=== PATIENT | female | born 1935 | race Caucasian/White ===

== ENCOUNTER 2021-10-29 12:32 | Inpatient (IN) ==
--- NOTE | 2021-10-29 12:49 | Emergency Department Note ---
Impression & Plan TIA (transient ischemic attack), Hypertension, Acute hyponatremia ED Provider Note NAME: SHRUTHI MORRISSEY AGE: 85 SEX: F : 1935 ARRIVES VIA: Walk-In INFORMANT: Patient ED PROVIDER(S): Fran Mendoza DO CHIEF COMPLAINT: trouble walking HPI: Patient is a 85-year-old female who presents to the ER for trouble walking. She notes she was sitting around 1150 and noticed pain on the left side of her head. Following this she had some coolness over the left side of her face. She has been having trouble walking. She denies any weakness or numbness in her arms or legs. No change in vision. No chest pain or shortness of breath. No nausea, vomiting, or diarrhea. No other exacerbating or remitting factors. ROS: See above HPI for pertinent positives & negatives. A total of 10 systems reviewed and were otherwise negative. PAST MEDICAL HISTORY:See Below PAST SURGICAL HISTORY:See Below FAMILY HISTORY:See Below SOCIAL HISTORY:See Below HOME MEDICATIONS:See Below ALLERGIES:See Below VITALS:See Below PHYSICAL EXAMINATION: GENERAL: Sitting up in bed, alert, well appearing, well nourished, no distress, non-toxic EYE EXAM: normal conjunctiva. PERRL and EOM's intact. OROPHARYNX:mucous membranes are moist LUNGS: Clear to auscultation. Normal chest wall mechanics HEART: no murmurs, S1 normal and S2 normal ABDOMEN: abdomen soft, non-tender, normo-active bowel sounds, no masses, no rebound or guarding. BACK: Back is symmetrical on inspection and there is no deformity, no midline tenderness, no CVA tenderness. SKIN: no rashes and no bruising UPPER EXTREMITIES: upper extremities are grossly normal. LOWER EXTREMITIES: No pitting edema. NEURO EXAM: Normal sensorium, cranial nerves II-XII intact, normal speech, no weakness of arms, no weakness of legs. No drift. Finger to nose intact. Gross sensation intact. Ambulates with little to no assistance. MEDICAL DECISION MAKING: Patient is an 85-year-old female who presents the ER for the above-stated complaint. IV was established blood work was obtained. Labs show no significant leukocytosis or anemia. INR was unremarkable. BMP with mild hyponatremia at 128. LFTs bilirubin was unremarkable. Blood was negative. COVID was negative. CT of the head shows lacunar infarcts in combination with approximately 50% stenosis of the left carotid, 70% stenosis of the right internal carotid, marked stenosis of the right carotid artery at 90% as well as complete stenosis of the left vertebral artery with questionable dissection. Patient is completely neurologically intact. She is not a candidate for tPA at this time based on her stroke score no neurodeficit. Her blood pressure was significantly elevated and systolics of 280. She was given 2 doses of labetalol and trended down 230. Triage Nursing notes reviewed. Limited review of prior medical records performed Vital Signs: reviewed and remarkable for hypertensive Differential diagnosis: Differential Diagnosis includes but is not limited to ischemic Stroke, hemorrhagic stroke, bells palsy, mass, neoplasm, migraine headache, seizure, subarachnoid hemorrhage, TIA, and transient global amnesia. ER treatment provided: See below Diagnostics interpreted by me: ECG: Sinus rhythm rate of 97 Normal axis No PVCs QTC 439 Cardiac Monitoring: An order was placed for continuous cardiac monitoring. The monitor shows a rate of 92 with sinus rhythm. Laboratory studies: As stated above and show below. Imaging studies: CTs as described above [facility] Procedures: none Critical Care: I have personally spent 32 minutes of critical care time in the direct manag ement of this patient. This includes bedside care, interpretation of diagnostic studies, and testing, discussion with consultants, patient, and family members, and other required patient management activities. This 32 minutes is in excess of all separately billable procedures. Past Med/Surg History Medical History (Updated 10/29/21 @ 16:15 by Fran Mendoza DO) CVA (cerebral vascular accident) seen on 10/28/[address] Hypertension Surgical History (Updated 10/29/21 @ 16:09 by Ruth Duran PA-C) No significant past surgical history Family History (Updated 10/29/21 @ 16:08 by Ruth Duran PA-C) Other Family history non-contributory Social History Preferred Language: Russian Feels Safe at Home: Yes Results & Data (ED) Vital Signs Vital Signs - 24 hr 10/29/21 12:33 10/29/21 13:03 10/29/21 13:43 Temperature 36.8 C Temperature Source Temporal Artery Scan Pulse Rate 98 H 85 Pulse Rate [Apical] 93 H Pulse Rate from SpO2 Sensor 84 Respiratory Rate 16 15 20 Blood Pressure Blood Pressure [Left Arm] 280/116 H Blood Pressure Mean Blood Pressure Mean [Left Arm] 170 Pulse Oximetry 98 99 98 Oxygen Delivery Method Room Air Room Air Sepsis Recent Fever Within 48 Hours No Sepsis New/Unexplained Change in Mental Status No Sepsis Action Taken by Nursing No Action Required 10/29/21 13:45 10/29/21 14:00 10/29/21 14:30 Temperature Temperature Source Pulse Rate 85 75 74 Pulse Rate [Apical] Pulse Rate from SpO2 Sensor 84 75 76 Respiratory Rate 22 23 17 Blood Pressure 233/106 H 239/72 H 260/86 H Blood Pressure [Left Arm] Blood Pressure Mean 148 127 144 Blood Pressure Mean [Left Arm] Pulse Oximetry 98 97 98 Oxygen Delivery Method Room Air Room Air Room Air Sepsis Recent Fever Within 48 Hours Sepsis New/Unexplained Change in Mental Status Sepsis Action Taken by Nursing 10/29/21 14:34 10/29/21 14:55 10/29/21 15:00 Temperature Temperature Source Pulse Rate 83 79 Pulse Rate [Apical] Pulse Rate from SpO2 Sensor 83 80 Respiratory Rate 15 15 Blood Pressure 219/165 H Blood Pressure [Left Arm] Blood Pressure Mean 183 Blood Pressure Mean [Left Arm] Pulse Oximetry 98 98 Oxygen Delivery Method Room Air Room Air Room Air Sepsis Recent Fever Within 48 Hours Sepsis New/Unexplained Change in Mental Status Sepsis Action Taken by Nursing 10/29/21 15:01 Temperature Temperature Source Pulse Rate 80 Pulse Rate [Apical] Pulse Rate from SpO2 Sensor 82 Respiratory Rate 15 Blood Pressure 239/82 H Blood Pressure [Left Arm] Blood Pressure Mean 134 Blood Pressure Mean [Left Arm] Pulse Oximetry 98 Oxygen Delivery Method Room Air Sepsis Recent Fever Within 48 Hours Sepsis New/Unexplained Change in Mental Status Sepsis Action Taken by Nursing Laboratory Data Result diagrams: 10/29/21 13:50 10/29/21 13:50 Lab Results 10/29/21 10/29/21 10/29/21 Range/Units 12:59 13:50 13:50 WBC 6.13 (4.8-10.8) K/ul RBC 3.99 (3.93-5.22) M/uL Hgb 11.7 L (12.0-16.0) g/dl Hct 34.4 (34.1-44.9) % MCV 86.2 (80.0-100.0) fL MCH 29.3 (25.0-34.0) pg MCHC 34.0 (32.0-36.0) g/dL RDW Std Deviation 40.2 (36.4-46.3) fL RDW Coeff of Kaila 12.8 (11.5-14.5) % Plt Count 249 (130-400) K/uL MPV 10.2 (9.4-12.3) fL Immature Gran % (Auto) 0.3 % Neut % (Auto) 60.8 % Lymph % (Auto) 23.7 % [place] % (Auto) 10.8 % Eos % (Auto) 3.4 % Baso % (Auto) 1.0 % Neut # (Auto) 3.73 (1.4-6.5) K/uL Lymph # (Auto) 1.45 (1.2-3.4) K/uL [place] # (Auto) 0.66 (0.24-0.82) K/uL Eos # (Auto) 0.21 (0-0.50) K/uL Baso # (Auto) 0.06 (0-0.2) K/uL Immature Gran # (Auto) 0.02 (0.00-0.02) K/uL PT 10.9 (9.0-12.0) Seconds INR 1.0 (0.9-1.1) APTT 28.8 (21.0-31.0) Seconds PTT Ratio 1.0 Sodium (136-145) mmol/L Potassium (3.5-5.1) mmol/L Chloride (98-107) mmol/L Carbon Dioxide (21-32) mmol/L Anion Gap (3-11) BUN (6-23) mg/dl Creatinine (0.6-1.2) mg/dl Est Cr Clr Drug Dosing ml/min Est GFR ( Amer) ml/min Est GFR (Non-Af Amer) ml/min BUN/Creatinine Ratio (10-20) Glucose (70-99(Fasting)) mg/dl POC Glucose 105 H (70-99) mg/dl Calcium (8.5-10.1) mg/dl Magnesium (1.7-2.4) mg/dl Total Bilirubin (0.2-1.0) mg/dl AST (13-39) U/L ALT (7-52) U/L Alkaline Phosphatase (34-104) U/L Troponin I High Sens (0-14) pg/ml Total Protein (6.0-8.3) gm/dl Albumin (3.4-5.0) gm/dl Globulin (2.5-4.0) gm/dl Albumin/Globulin Ratio (0.9-2) SARS-CoV-2, RNA, NAAT (NEGATIVE) 10/29/21 10/29/21 Range/Units 13:50 15:05 WBC (4.8-10.8) K/ul RBC (3.93-5.22) M/uL Hgb (12.0-16.0) g/dl Hct (34.1-44.9) % MCV (80.0-100.0) fL MCH (25.0-34.0) pg MCHC (32.0-36.0) g/dL RDW Std Deviation (36.4-46.3) fL RDW Coeff of Kaila (11.5-14.5) % Plt Count (130-400) K/uL MPV (9.4-12.3) fL Immature Gran % (Auto) % Neut % (Auto) % Lymph % (Auto) % [place] % (Auto) % Eos % (Auto) % Baso % (Auto) % Neut # (Auto) (1.4-6.5) K/uL Lymph # (Auto) (1.2-3.4) K/uL [place] # (Auto) (0.24-0.82) K/uL Eos # (Auto) (0-0.50) K/uL Baso # (Auto) (0-0.2) K/uL Immature Gran # (Auto) (0.00-0.02) K/uL PT (9.0-12.0) Seconds INR (0.9-1.1) APTT (21.0-31.0) Seconds PTT Ratio Sodium 128 L (136-145) mmol/L Potassium 4.2 (3.5-5.1) mmol/L Chloride 99 (98-107) mmol/L Carbon Dioxide 24 (21-32) mmol/L Anion Gap 5 (3-11) BUN 22 (6-23) mg/dl Creatinine 1.17 (0.6-1.2) mg/dl Est Cr Clr Drug Dosing 30.9 ml/min Est GFR ( Amer) 48.5 ml/min Est GFR (Non-Af Amer) 41.9 ml/min BUN/Creatinine Ratio 18.8 (10-20) Glucose 100 H (70-99(Fasting)) mg/dl POC Glucose (70-99) mg/dl Calcium 8.0 L (8.5-10.1) mg/dl Magnesium 1.8 (1.7-2.4) mg/dl Total Bilirubin 0.4 (0.2-1.0) mg/dl AST 19 (13-39) U/L ALT 21 (7-52) U/L Alkaline Phosphatase 57 (34-104) U/L Troponin I High Sens 9.7 (0-14) pg/ml Total Protein 6.4 (6.0-8.3) gm/dl Albumin 3.7 (3.4-5.0) gm/dl Globulin 2.7 (2.5-4.0) gm/dl Albumin/Globulin Ratio 1.4 (0.9-2) SARS-CoV-2, RNA, NAAT NEGATIVE (NEGATIVE) Administered Medications Discontinued Medications Ioversol (Optiray 320 125ml) 119 ml IV ONCE ONE Stop: 10/29/21 13:42 Last Admin: 10/29/21 13:42 Dose: 119 ml Documented by: [id number] Labetalol HCl (Labetalol Hcl Iv 5 Mg/Ml 20ml) 10 mg IV NOW STA Stop: 10/29/21 13:12 Last Admin: 10/29/21 13:47 Dose: 10 mg Documented by: [id number] Cosigned by: [id number] Labetalol HCl (Labetalol Hcl Iv 5 Mg/Ml 20ml) 5 mg IV NOW STA Stop: 10/29/21 14:26 Last Admin: 10/29/21 14:37 Dose: 5 mg Documented by: [id number] Cosigned by: [id number] Imaging Data Radiologist's Impression: Chest X-Ray 10/29/21 12:46 XR chest 1V portable CLINICAL HISTORY: Stroke Like Symptoms. Evaluate cardiopulmonary status COMPARISON STUDY: No previous studies for comparison. TECHNIQUE: 1 view of the chest FINDINGS: Single frontal view of the chest demonstrates the cardiomediastinal silhouette to be within normal limits. The lungs are clear of alveolar opacities. There is no evidence for pleural effusion. There is no evidence for vascular congestion. There is no acute osseous pathology. IMPRESSION: 1. No acute cardiopulmonary disease. ACT 112: Negative or not required by law. Electronically signed by: Subhash Bonilla M.D. 10/29/2021 1:[address] 10/29/21 12:46 CT head/brain wo con CLINICAL HISTORY: Stroke Like Symptoms . Development of left eye pain and left- sided weakness COMPARISON STUDY: No previous studies for comparison. CT DOSE: TECHNIQUE: Standard CT of the Brain was performed without IV contrast. A dose lowering technique was utilized adhering to the principles of ALARA. FINDINGS: Extraaxial space: There is no evidence for subdural hematoma. There are no extra-axial fluid collections. Ventricles and cisterns: The ventricles are mildly dilated bilaterally. There is no evidence for midline shift or mass effect. Parenchyma: There is no subarachnoid or intraparenchymal hemorrhage. There is no evidence for an acute infarct or cerebral edema. Lacunar infarcts are present in the head of the thalamus on the left in the basal ganglia on the left. There is mild cerebral cortical atrophy and decreased attenuation in the periventricular white matter representing remote small vessel disease. There are no gross mass lesions. Osseous structures: There is no evidence for an acute fracture. The visualized paranasal sinuses are clear. The mastoid air cells are clear bilaterally. Soft tissues: There is no evidence for focal soft tissue swelling. IMPRESSION: 1. No acute intracerebral pathology. 2. Cerebral cortical atrophy and remote small vessel disease. 3. Lacunar infarcts involving the head of the thalamus on the left and the basal ganglia on the left. ACT 112: Negative or not required by law. Electronically signed by: Subhash Bonilla M.D. 10/29/2021 2:01 PM Head CTA 10/29/21 12:46 CT angio head w con CLINICAL HISTORY: Stroke Like Symptoms . Left eye pain and weakness COMPARISON STUDY: CT of the brain without contrast from 10/29/2021 CT DOSE: TECHNIQUE: CT Angio of the brain and neck was performed.followed by image post processing with coronal, and sagittal MIP reformats.. This CT exam was performed using one or more of the following dose reduction techniques: Automated exposure control, adjustment of the mA and/or kV according to patient size, or use of iterative reconstruction technique. Axial images were obtained followed by coronal and sagittal MPR and MIP images. 3-D surface rendered MIP images as well as curved planar reformatted images were obtained. Contrast Volume: Optiray 320, 119 ml FINDINGS: HEAD: Vascular findings: There is normal enhancement within the internal carotid arteries bilaterally. There is normal enhancement noted within the anterior, middle and posterior cerebral arteries. Nonvascular findings: There is homogeneous attenuation of the brain parenchyma bilaterally. There is no evidence for an acute infarct or cerebral edema. There is mild cerebral cortical atrophy and decreased attenuation in the periventric ular white matter representing remote small vessel disease. NECK: Vascular findings: Right common carotid artery: Patent without significant stenosis. Atherosclerotic calcification is present. Additionally, extensive calcification is present at the carotid bulb with approximately 90% stenosis present at the carotid bulb. Right internal carotid artery: The calcification extends into the origin of the left internal carotid artery with 70% stenosis present.. . Right vertebral artery: Patent without significant stenosis. Left common carotid artery: Patent without significant stenosis. Microscopic calcification is present. However, there is moderate calcification at the carotid bulb with approximately 50% stenosis present. Left internal carotid artery: Patent without significant stenosis.. Left vertebral artery: There is marked stenosis of the left vertebral artery beginning at its origin and extending to the level of the superior endplate of C4. The findings are characteristic of marked atherosclerotic disease versus dissection. Nonvascular findings: The parotid and submandibular salivary glands appear normal. There is no enlarged cervical adenopathy noted. The airway appears patent. The thyroid gland appears within normal limits. The lung apices appear within normal limits. IMPRESSION: 1. Negative CTA of the brain. 2. Marked stenosis involving the right carotid artery at the level of the carotid bulb estimated at approximately 90% utilizing NASCET criteria. 3. There is also approximately 70% stenosis of the origin of the right internal carotid artery. 4. Approximately 50% stenosis involving the left carotid bulb. 5. 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 The artery reconstitutes itself at the superior endplate of C4. ACT 112: Negative or not required by law. Electronically signed by: Subhash Bonilla M.D. 10/29/2021 2:19 PM Neck CTA 10/29/21 12:46 CT angio head and neck w con CLINICAL HISTORY: Stroke Like Symptoms . Left eye pain and weakness COMPARISON STUDY: CT of the brain without contrast from 10/29/2021 CT DOSE: TECHNIQUE: CT Angio of the brain and neck was performed.followed by image post processing with coronal, and sagittal MIP reformats.. This CT exam was performed using one or more of the following dose reduction techniques: Automated exposure control, adjustment of the mA and/or kV according to patient size, or use of iterative reconstruction technique. Axial images were obtained followed by coronal and sagittal MPR and MIP images. 3-D surface rendered MIP images as well as curved planar reformatted images were obtained. Contrast Volume: Optiray 320, 119 ml FINDINGS: HEAD: Vascular findings: There is normal enhancement within the internal carotid arteries bilaterally. There is normal enhancement noted within the anterior, middle and posterior cerebral arteries. Nonvascular findings: There is homogeneous attenuation of the brain parenchyma b ilaterally. There is no evidence for an acute infarct or cerebral edema. There is mild cerebral cortical atrophy and decreased attenuation in the periventricular white matter representing remote small vessel disease. NECK: Vascular findings: Right common carotid artery: Patent without significant stenosis. Atherosclero tic calcification is present. Additionally, extensive calcification is present at the carotid bulb with approximately 90% stenosis present at the carotid bulb. Right internal carotid artery: The calcification extends into the origin of the left internal carotid artery with 70% stenosis present.. . Right vertebral artery: Patent without significant stenosis. Left common carotid artery: Patent without significant stenosis. Microscopic calcification is present. However, there is moderate calcification at the carotid bulb with approximately 50% stenosis present. Left internal carotid artery: Patent without significant stenosis.. Left vertebral artery: There is marked stenosis of the left vertebral artery beginning at its origin and extending to the level of the superior endplate of C4. The findings are characteristic of marked atherosclerotic disease versus dis section. Nonvascular findings: The parotid and submandibular salivary glands appear normal. There is no enlarged cervical adenopathy noted. The airway appears patent. The thyroid gland appears within normal limits. The lung apices appear within normal limits. IMPRESSION: 1. Negative CTA of the brain. 2. Marked stenosis involving the right carotid artery at the level of the carotid bulb estimated at approximately 90% utilizing NASCET criteria. 3. There is also approximately 70% stenosis of the origin of the right internal carotid artery. 4. Approximately 50% stenosis involving the left carotid bulb. 5. 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 The artery reconstitutes itself at the superior endplate of C4. ACT 112: Negative or not required by law. Electronically signed by: Subhash Bonilla M.D. 10/29/2021 2:34 PM Discharge Plan Visit Data Chief Complaint: Stroke/CVA Symptoms Stated Complaint: STROKE SYMPTOMS ED Provider: Fran Mendoza Discharge Problem: TIA (transient ischemic attack), Hypertension, Acute hyponatremia Forms Stand Alone Forms: [facility] Referrals Referrals: PCP,NO [Primary Care Provider] -
[2021-10-29] MEDS ORDERED: LABETALOL HCL IV 5 MG/ML 20ML IV STA ×2 (13:11→14:25)
--- NOTE | 2021-10-29 13:24 | XRay Report ---
XR chest 1V portable CLINICAL HISTORY: Stroke Like Symptoms. Evaluate cardiopulmonary status COMPARISON STUDY: No previous studies for comparison. TECHNIQUE: 1 view of the chest FINDINGS: Single frontal view of the chest demonstrates the cardiomediastinal silhouette to be within normal li mits. The lungs are clear of alveolar opacities. There is no evidence for pleural effusion. There is no evidence for vascular congestion. There is no acute osseous pathology. IMPRESSION: 1. No acute cardiopulmonary disease. ACT 112: Negative or not required by law. Electronically signed by: Subhash Bonilla M.D. 10/29/2021 1:22 PM
[2021-10-29] MEDS ORDERED: OPTIRAY 320 125ml IV ONE (13:41)
--- NOTE | 2021-10-29 14:03 | CT Scan Report ---
CT head/brain wo con CLINICAL HISTORY: Stroke Like Symptoms . Development of left eye pain and left-sided weakness COMPARISON STUDY: No previous studies for comparison. CT DOSE: TECHNIQUE: Standard CT of the Brain was performed without IV contrast. A dose lowering technique was utilized adhering to the principles of ALARA. FINDINGS: Extraaxial space: There is no evidence for subdural hematoma. There are no extra-axial fluid collecti ons. Ventricles and cisterns: The ventricles are mildly dilated bilaterally. There is no evidence for midl ine shift or mass effect. Parenchyma: There is no subarachnoid or intraparenchymal hemorrhage. There is no evidence for an acut e infarct or cerebral edema. Lacunar infarcts are present in the head of the thalamus on the left in the basal ganglia on the left. There is mild cerebral cortical atrophy and decreased attenuation in t he periventricular white matter representing remote small vessel disease. There are no gross mass les ions. Osseous structures: There is no evidence for an acute fracture. The visualized paranasal sinuses are clear. The mastoid air cells are clear bilaterally. Soft tissues: There is no evidence for focal soft tissue swelling. IMPRESSION: 1. No acute intracerebral pathology. 2. Cerebral cortical atrophy and remote small vessel disease. 3. Lacunar infarcts involving the head of the thalamus on the left and the basal ganglia on the left. ACT 112: Negative or not required by law. Electronically signed by: Subhash Bonilla M.D. 10/29/2021 2:01 PM
[2021-10-29 14:11] LABS: Basophils # (auto) 0.06 K/uL (0-0.2); Eosinophils # (auto) 0.21 K/uL (0-0.50); Eosinophils % (auto) 3.4 %; Hematocrit (blood only) 34.4 % (34.1-44.9); Hemoglobin 11.7 g/dl (12.0-16.0); Immature Granulocytes # (auto) 0.02 K/uL (0.00-0.02); Immature Granulocytes % (auto) 0.3 %; Lymphocytes # (auto) 1.45 K/uL (1.2-3.4); Lymphocytes % (auto) 23.7 %; Mean Corpuscular Hemoglobin 29.3 pg (25.0-34.0); Mean Corpuscular Volume 86.2 fL (80.0-100.0); Mean Platelet Volume 10.2 fL (9.4-12.3); Monocytes # (auto) 0.66 K/uL (0.24-0.82); Monocytes % (auto) 10.8 %; Neutrophils # (auto) 3.73 K/uL (1.4-6.5); Neutrophils % (auto) 60.8 %; Platelet Count 249 K/uL (130-400); RDW Coefficient of Variation 12.8 % (11.5-14.5); RDW Standard Deviation 40.2 fL (36.4-46.3); Red Blood Count 3.99 M/uL (3.93-5.22); White Blood Count 6.13 K/ul (4.8-10.8)
[2021-10-29 14:18] LABS: Partial Thromboplastin Time 28.8 Seconds (21.0-31.0); Prothrombin Time 10.9 Seconds (9.0-12.0)
[2021-10-29 14:31] LABS: Troponin I High Sensitivity 9.7 pg/ml (0-14)
[2021-10-29 14:35] LABS: Albumin Globulin Ratio 1.4 (0.9-2); Albumin Level 3.7 gm/dl (3.4-5.0); BUN Creatinine Ratio 18.8 (10-20); Bilirubin,Total 0.4 mg/dl (0.2-1.0); Creatinine Clr Calc Pharmacy 30.9 ml/min; Est GFR (African American) 48.5 ml/min; Est GFR (Non-African American) 41.9 ml/min; Globulin 2.7 gm/dl (2.5-4.0); Magnesium 1.8 mg/dl (1.7-2.4); Potassium 4.2 mmol/L (3.5-5.1); Total Protein 6.4 gm/dl (6.0-8.3)
--- NOTE | 2021-10-29 14:36 | History & Physical Report ---
Date of Service October 29, 2021 Assessment & Plan (1) Hypertension: Plan: - Initial BP 280/116, so was given 10 mg IV labetalol and subsequent 5 mg IV labetalol for persistent severe hypertension. BP still high despite this, so an additional 10 mg IV hydralazine was ordered. - Per patient, her BP was elevated with systolic in 200s past several years, this is probably not currently increased from her baseline. Need to lower BP to avoid hemorrhagic stroke but avoid lowering too fast too soon, as patient is likely used to high BPs. (2) TIA (transient ischemic attack): Plan: - Full resolution of symptoms upon arrival to ED. Did take Tylenol at home. - MRI ordered. - Echo in a.m. - CBC, BMP, HbA1c, PT/INR, lipid panel in a.m. - PT, OT, ST to evaluate in a.m. - Avoid hypotension, hypoglycemia. - CT of head, CTA of head and neck findings as above. - Consult neurology for TIA/CVA management. - Consult vascular surgery for multiple areas of carotid/vertebral stenosis. - Telemetry for 24 hours, evaluate for episodes of atrial fibrillation. - Empirically started on amlodipine 10 mg daily, aspirin 81mg daily, Plavix 75 mg daily, Lipitor 40 mg daily. (3) Hyponatremia: Plan: - 128, without baseline labs for reference. - Serum osm, urine osm, urine Na ordered. Plan: - Admit to PCU. - SCDs, heparin for VTE ppx. - Full Code. History of Present Illness Chief Complaint: unsteady gait, left sided headache Primary Care Provider: NO PCP Myesha Johnson is an 85-year-old female with a past medical history significant for hypertension who presents from home today with trouble walking. Around 11:50 AM this morning, she had pain on left side of her head and behind her eye and also noticed that the left side of her face felt cool. At the same time, she had difficulty ambulating. She called her son, who transported her to the ED for further evaluation. He also notes that while she was walking out of the car, she had an unsteady gait and was bleeding towards the left. Upon arrival, all her symptoms have resolved. Aside from the above, patient without any other complaints, no chest pain, palpitations, shortness breath, cough, abdominal, nausea, vomiting, no focal weakness/numbness/tingling, no slurred speech, no word finding difficulty. No visual changes. She has not seen a doctor for several years. She was on several BP medications for many years, however 2 years ago she stopped them altogether because despite being on them, her pressure was still "very high", reporting they were in the 200s. She felt there was no benefit to taking them. She has not seen a provider since then. 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 She initially presented to the ED very hypertensive 280/116, tachycardic heart rate in 90s, otherwise vital signs within normal limits. Head CT with evidence of prior lacunar infarcts, no acute process noted. 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 Past Med/Surg History Medical History (Updated 10/29/21 @ 16:15 by Fran Mendoza DO) CVA (cerebral vascular accident) seen on 10/28/[address] Hypertension Surgical History (Updated 10/29/21 @ 16:09 by Ruth Duran PA-C) No significant past surgical history Family History (Updated 10/29/21 @ 16:08 by Ruth Duran PA-C) Other Family history non-contributory Social History Preferred Language: Croatian Feels Safe at Home: Yes Review of Systems Review of Systems: Constitutional: No fever/chills, weakness, fatigue, myalgias, anorexia, night sweats Eyes: No diplopia, no worsening or blurred vision ENT: normal hearing, no trouble swallowing Respiratory: No cough, sputum, dyspnea at rest or on exertion Cardiovascular: No chest pain, tightness or palpitations Abdomen: No pain, nausea, vomiting, diarrhea or constipation : Denies dysuria, hematuria, increased urgency/frequency, urinary retention Musculoskeletal: No joint pain, calf pain, swelling Neurologic: transient left frontal/ocular headache, left facial coolness, altered gait; No focal weakness, numbness/tingling, slurred speech Psychiatric: No anxiety or depression Skin: No rash or itch Physical Exam Physical Exam: General: awake, alert, no apparent distress Head: Normocephalic, atraumatic ENT: PERRL, EOMI, no pharyngeal exudate, mucous membranes moist Chest: Clear to auscultation, on room air, no adventitious breath sounds Cardiac: Regular rate and rhythm, no murmur, no JVD, normal peripheral pulses, good capillary refill Abdominal: NABS x 4 quadrants, soft, nontender to palpation, no rebound, guarding or tenderness Extremities: Normal inspection, no peripheral edema or erythema, calfs nontender to palpation Psych: Normal mood and affect Neuro: AAO x 3, strength intact bilaterally and rated 5/5, no motor deficits, speech is clear, no peripheral sensory deficits Skin: no rash or erythema Results & Data Results & Data ([facility]) Vital Signs (Past 12 Hours) Vital Signs Temp Pulse Pulse Resp BP BP Pulse Ox 10/29/21 14:00 75 23 239/72 H 97 10/29/21 13:45 85 22 233/106 H 98 10/29/21 13:43 85 20 98 10/29/21 13:03 93 H 15 280/116 H 99 10/29/21 12:33 36.8 C 98 H 16 98 Laboratory Results Abnormal lab results 10/29/21 10/29/21 10/29/21 Range/Units 12:59 13:50 13:50 Hgb 11.7 L (12.0-16.0) g/dl Sodium 128 L (136-145) mmol/L Glucose 100 H (70-99(Fasting)) mg/dl POC Glucose 105 H (70-99) mg/dl Calcium 8.0 L (8.5-10.1) mg/dl Diagnostic Findings Chest X-Ray 10/29/21 12:46 XR chest 1V portable CLINICAL HISTORY: Stroke Like Symptoms. Evaluate cardiopulmonary status COMPARISON STUDY: No previous studies for comparison. TECHNIQUE: 1 view of the chest FINDINGS: Single frontal view of the chest demonstrates the cardiomediastinal silhouette to be within normal limits. The lungs are clear of alveolar opacities. There is no evidence for pleural effusion. There is no evidence for vascular congestion. There is no acute osseous pathology. IMPRESSION: 1. No acute cardiopulmonary disease. ACT 112: Negative or not required by law. Electronically signed by: Subhash Bonilla M.D. 10/29/2021 1:[address] 10/29/21 12:46 CT head/brain wo con CLINICAL HISTORY: Stroke Like Symptoms . Development of left eye pain and left- sided weakness COMPARISON STUDY: No previous studies for comparison. CT DOSE: TECHNIQUE: Standard CT of the Brain was performed without IV contrast. A dose lowering technique was utilized adhering to the principles of ALARA. FINDINGS: Extraaxial space: There is no evidence for subdural hematoma. There are no extra-axial fluid collections. Ventricles and cisterns: The ventricles are mildly dilated bilaterally. There is no evidence for midline shift or mass effect. Parenchyma: There is no subarachnoid or intraparenchymal hemorrhage. There is no evidence for an acute infarct or cerebral edema. Lacunar infarcts are present in the head of the thalamus on the left in the basal ganglia on the left. There is mild cerebral cortical atrophy and decreased attenuation in the periventricular white matter representing remote small vessel disease. There are no gross mass lesions. Osseous structures: There is no evidence for an acute fracture. The visualized paranasal sinuses are clear. The mastoid air cells are clear bilaterally. Soft tissues: There is no evidence for focal soft tissue swelling. IMPRESSION: 1. No acute intracerebral pathology. 2. Cerebral cortical atrophy and remote small vessel disease. 3. Lacunar infarcts involving the head of the thalamus on the left and the basal ganglia on the left. ACT 112: Negative or not required by law. Electronically signed by: Subhash Bonilla M.D. 10/29/2021 2:01 PM Head CTA 10/29/21 12:46 CT angio head w con CLINICAL HISTORY: Stroke Like Symptoms . Left eye pain and weakness COMPARISON STUDY: CT of the brain without contrast from 10/29/2021 CT DOSE: TECHNIQUE: CT Angio of the brain and neck was performed.followed by image post processing with coronal, and sagittal MIP reformats.. This CT exam was performed using one or more of the following dose reduction techniques: Automated exposure control, adjustment of the mA and/or kV according to patient size, or use of iterative reconstruction technique. Axial images were obtained followed by coronal and sagittal MPR and MIP images. 3-D surface rendered MIP images as well as curved planar reformatted images were obtained. Contrast Volume: Optiray 320, 119 ml FINDINGS: HEAD: Vascular findings: There is normal enhancement within the internal carotid arteries bilaterally. There is normal enhancement noted within the anterior, middle and posterior cerebral arteries. Nonvascular findings: There is homogeneous attenuation of the brain parenchyma bilaterally. There is no evidence for an acute infarct or cerebral edema. There is mild cerebral cortical atrophy and decreased attenuation in the periventricular white matter representing remote small vessel disease. NECK: Vascular findings: Right common carotid artery: Patent without significant stenosis. Atherosclerotic calcification is present. Additionally, extensive calcification is present at the carotid bulb with approximately 90% stenosis present at the carotid bulb. Right internal carotid artery: The calcification extends into the origin of the left internal carotid artery with 70% stenosis present.. . Right vertebral artery: Patent without significant stenosis. Left common carotid artery: Patent without significant stenosis. Microscopic calcification is present. However, there is moderate calcification at the carotid bulb with approximately 50% stenosis present. Left internal carotid artery: Patent without significant stenosis.. Left vertebral artery: There is marked stenosis of the left vertebral artery beginning at its origin and extending to the level of the superior endplate of C4. The findings are characteristic of marked atherosclerotic disease versus dissection. Nonvascular findings: The parotid and submandibular salivary glands appear normal. There is no enlarged cervical adenopathy noted. The airway appears patent. The thyroid gland appears within normal limits. The lung apices appear within normal limits. IMPRESSION: 1. Negative CTA of the brain. 2. Marked stenosis involving the right carotid artery at the level of the carotid bulb estimated at approximately 90% utilizing NASCET criteria. 3. There is also approximately 70% stenosis of the origin of the right internal carotid artery. 4. Approximately 50% stenosis involving the left carotid bulb. 5. 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 The artery reconstitutes itself at the superior endplate of C4. ACT 112: Negative or not required by law. Electronically signed by: Subhash Bonilla M.D. 10/29/2021 2:19 PM Neck CTA 10/29/21 12:46 CT angio head and neck w con CLINICAL HISTORY: Stroke Like Symptoms . Left eye pain and weakness COMPARISON STUDY: CT of the brain without contrast from 10/29/2021 CT DOSE: TECHNIQUE: CT Angio of the brain and neck was performed.followed by image post processing with coronal, and sagittal MIP reformats.. This CT exam was performed using one or more of the following dose reduction techniques: Automated exposure control, adjustment of the mA and/or kV according to patient size, or use of iterative reconstruction technique. Axial images were obtained followed by coronal and sagittal MPR and MIP images. 3-D surface rendered MIP images as well as curved planar reformatted images were obtained. Contrast Volume: Optiray 320, 119 ml FINDINGS: HEAD: Vascular findings: There is normal enhancement within the internal carotid arteries bilaterally. There is normal enhancement noted within the anterior, middle and posterior cerebral arteries. Nonvascular findings: There is homogeneous attenuation of the brain parenchyma bilaterally. There is no evidence for an acute infarct or cerebral edema. There is mild cerebral cortical atrophy and decreased attenuation in the periventricular white matter representing remote small vessel disease. NECK: Vascular findings: Right common carotid artery: Patent without significant stenosis. Atherosclerotic calcification is present. Additionally, extensive calcification is present at the carotid bulb with approximately 90% stenosis present at the carotid bulb. Right internal carotid artery: The calcification extends into the origin of the left internal carotid artery with 70% stenosis present.. . Right vertebral artery: Patent without significant stenosis. Left common carotid artery: Patent without significant stenosis. Microscopic calcification is present. However, there is moderate calcification at the carotid bulb with approximately 50% stenosis present. Left internal carotid artery: Patent without significant stenosis.. Left vertebral artery: There is marked stenosis of the left vertebral artery beginning at its origin and extending to the level of the superior endplate of C4. The findings are characteristic of marked atherosclerotic disease versus dissection. Nonvascular findings: The parotid and submandibular salivary glands appear normal. There is no enlarged cervical adenopathy noted. The airway appears patent. The thyroid gland appears within normal limits. The lung apices appear within normal limits. IMPRESSION: 1. Negative CTA of the brain. 2. Marked stenosis involving the right carotid artery at the level of the carotid bulb estimated at approximately 90% utilizing NASCET criteria. 3. There is also approximately 70% stenosis of the origin of the right internal carotid artery. 4. Approximately 50% stenosis involving the left carotid bulb. 5. 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 The artery reconstitutes itself at the superior endplate of C4. ACT 112: Negative or not required by law. Electronically signed by: Subhash Bonilla M.D. 10/29/2021 2:34 PM ECG Additional Comments: Normal sinus rhythm Possible Left atrial enlargement Nonspecific ST abnormality Abnormal ECG No previous ECGs available. Code Status & VTE Plan Code Status Full Code. Supervising Physician Co-Signing Physician Notes Patient seen and examined with PA-C, agree with her note above. Patient has significantly elevated blood pressure, was given 50 mg total IV labetalol without much relief. 10 mg of hydralazine ordered. Plan to lower blood pressure slowly. Certainly concerned about a TIA, patient is currently asymptomatic but does have evidence on CT of previous lacunar infarct. We will start aspirin and Plavix now along with statin. Follow laboratory work. Significant carotid disease noted, last vascular surgery to see not emergently. Continue to work-up per stroke protocol which included MRI and a 2D echo. PG Care Time/CCT Total # of Minutes Spent Total Time Spent with Patient: Total time spent is greater than 50% in coordination of care (as documented) at patient's floor/unit and/or counseling patient: Coding Level of Care Code 35197 Initial Inpt Care Lvl 2 Diagnoses Hypertension I10 TIA (transient ischemic attack) G45.9 Hyponatremia E87.1
--- NOTE | 2021-10-29 14:36 | CT Scan Report ---
CT angio head and neck w con CLINICAL HISTORY: Stroke Like Symptoms . Left eye pain and weakness COMPARISON STUDY: CT of the brain without contrast from 10/29/2021 CT DOSE: TECHNIQUE: CT Angio of the brain and neck was performed.followed by image post processing with coron al, and sagittal MIP reformats.. This CT exam was performed using one or more of the following dose reduction techniques: Automated ex posure control, adjustment of the mA and/or kV according to patient size, or use of iterative reconst ruction technique. Axial images were obtained followed by coronal and sagittal MPR and MIP images. 3 -D surface rendered MIP images as well as curved planar reformatted images were obtained. Contrast Volume: Optiray 320, 119 ml FINDINGS: HEAD: Vascular findings: There is normal enhancement within the internal carotid arteries bilaterally. The re is normal enhancement noted within the anterior, middle and posterior cerebral arteries. Nonvascular findings: There is homogeneous attenuation of the brain parenchyma bilaterally. There is no evidence for an acute infarct or cerebral edema. There is mild cerebral cortical atrophy and decre ased attenuation in the periventricular white matter representing remote small vessel disease. NECK: Vascular findings: Right common carotid artery: Patent without significant stenosis. Atherosclerotic calcification is pr esent. Additionally, extensive calcification is present at the carotid bulb with approximately 90% st enosis present at the carotid bulb. Right internal carotid artery: The calcification extends into the origin of the left internal carotid artery with 70% stenosis present.. . Right vertebral artery: Patent without significant stenosis. Left common carotid artery: Patent without significant stenosis. Microscopic calcification is present . However, there is moderate calcification at the carotid bulb with approximately 50% stenosis presen t. Left internal carotid artery: Patent without significant stenosis.. Left vertebral artery: There is marked stenosis of the left vertebral artery beginning at its origin and extending to the level of the superior endplate of C4. The findings are characteristic of marked atherosclerotic disease versus dissection. Nonvascular findings: The parotid and submandibular salivary glands appear normal. There is no enlarged cervical adenopathy noted. The airway appears patent. The thyroid gland appears within normal limits. The lung apices ap pear within normal limits. IMPRESSION: 1. Negative CTA of the brain. 2. Marked stenosis involving the right carotid artery at the level of the carotid bulb estimated at a pproximately 90% utilizing NASCET criteria. 3. There is also approximately 70% stenosis of the origin of the right internal carotid artery. 4. Approximately 50% stenosis involving the left carotid bulb. 5. Complete stenosis/occlusion of the proximal half of the left vertebral artery characteristic of at herosclerotic disease versus dissection. The artery reconstitutes itself at the superior endplate of C4. ACT 112: Negative or not required by law. Electronically signed by: Subhash Bonilla M.D. 10/29/2021 2:34 PM
[2021-10-29] MEDS ORDERED: ACETAMINOPHEN 325 MG TAB PO PRN (16:56)
[2021-10-29] MEDS ORDERED: MAGNESIUM HYDROXIDE SUSP 30 ML UDC PO PRN (16:56)
[2021-10-29] MEDS ORDERED: hydrALAZINE HCL 20 MG/ML VIAL IV STA (16:56)
[2021-10-29] MEDS ORDERED: ALUMINUM/MAGNESIUM SUSP 30 ML UDC PO PRN (16:56)
[2021-10-29] MEDS ORDERED: ASPIRIN 81 MG CHEW PO ONE (16:56)
[2021-10-29] MEDS ORDERED: PHARMACIST DISCHARGE MED REC CONSULT PRN (16:56)
[2021-10-29] MEDS ORDERED: ONDANSETRON INJ 2 MG/ML 2 ML VIAL IV PRN (16:56)
[2021-10-29] MEDS ORDERED: PNEUMOCOCCAL POLYSACCHARIDES 25 MCG/0.5 ML VIAL/SYR IM ONE (19:00)
[2021-10-29] MEDS: HEPARIN SOD 5,000 UNIT/0.5 ML VIAL SQ SCH (21:47)
[2021-10-30] MEDS: HEPARIN SOD 5,000 UNIT/0.5 ML VIAL SQ SCH ×3 (05:36→21:15)
[2021-10-30 06:46] LABS: Basophils # (auto) 0.06 K/uL (0-0.2); Eosinophils # (auto) 0.21 K/uL (0-0.50); Eosinophils % (auto) 3.5 %; Hematocrit (blood only) 37.8 % (34.1-44.9); Hemoglobin 12.9 g/dl (12.0-16.0); Immature Granulocytes # (auto) 0.01 K/uL (0.00-0.02); Immature Granulocytes % (auto) 0.2 %; Lymphocytes # (auto) 2.18 K/uL (1.2-3.4); Lymphocytes % (auto) 36.2 %; Mean Corpuscular Hgb Conc 34.1 g/dL (32.0-36.0); Mean Corpuscular Volume 87.9 fL (80.0-100.0); Mean Platelet Volume 10.5 fL (9.4-12.3); Monocytes % (auto) 11.6 %; Neutrophils # (auto) 2.86 K/uL (1.4-6.5); Neutrophils % (auto) 47.5 %; Platelet Count 277 K/uL (130-400); RDW Coefficient of Variation 13.2 % (11.5-14.5); RDW Standard Deviation 41.8 fL (36.4-46.3); White Blood Count 6.02 K/ul (4.8-10.8)
[2021-10-30 07:08] LABS: Albumin Globulin Ratio 1.3 (0.9-2); Albumin Level 3.9 gm/dl (3.4-5.0); BUN Creatinine Ratio 19.6 (10-20); Bilirubin,Total 0.5 mg/dl (0.2-1.0); Calcium 8.8 mg/dl (8.5-10.1); Chol HDL Ratio 4.9 (0-5); Est GFR (African American) 51.2 ml/min; Est GFR (Non-African American) 44.1 ml/min; Potassium 3.9 mmol/L (3.5-5.1); Total Protein 6.9 gm/dl (6.0-8.3)
[2021-10-30] MEDS: CLOPIDOGREL BISULFATE 75 MG TAB PO SCH (08:29)
[2021-10-30] MEDS: ATORVASTATIN 40 MG TAB PO SCH (08:29)
[2021-10-30] MEDS: amLODIPine BESYLATE 5 MG TAB PO SCH (08:29)
[2021-10-30] MEDS: ASPIRIN 81 MG ECTAB PO SCH (08:29)
[2021-10-30] MEDS ORDERED: CLOPIDOGREL BISULFATE 75 MG TAB PO SCH (09:00)
--- NOTE | 2021-10-30 10:33 | Magnetic Resonance Report ---
MR brain wo con CLINICAL HISTORY: TIA TECHNIQUE: Multiplanar and multisequence MR images of the brain were obtained without intravenous con trast. Comparison: None available at the time of this dictation. FINDINGS: No abnormal restricted diffusion is identified. The white matter is unremarkable. The ventricular sys tem is normal in appearance. No mass is seen. There is no mass effect or midline shift. There is no e vidence of acute intraparenchymal hemorrhage. No extra axial fluid collections are seen. The corpus c allosum, pituitary gland, and cerebellar tonsils appear grossly unremarkable. Flow voids of the major intracranial arterial vessels are identified. The imaged portions of the para nasal sinuses, mastoid air cells, and orbits are unremarkable. IMPRESSION: No acute abnormalities. ACT 112: Negative or not required by law. Electronically signed by: Jamal Calvert M.D. 10/30/2021 10:31 AM
[2021-10-30] MEDS ORDERED: hydroCHLOROthiazide 25 MG TAB PO STA (11:12)
--- NOTE | 2021-10-30 11:34 | XCELERA ---
[id number]
--- NOTE | 2021-10-30 12:07 | Electrocardiogram Report ---
Test Reason : Blood Pressure : / mmHG Vent. Rate : 097 BPM Atrial Rate : 097 BPM P-R Int : 154 ms QRS Dur : 072 ms QT Int : 346 ms P-R-T Axes : 042 007 049 degrees QTc Int : 439 ms Normal sinus rhythm Possible Left atrial enlargement No previous ECGs available Confirmed by Eleazar Espinosa ([id number]) on 10/30/2021 12:07:23 PM Referred By: Confirmed By:Richard Espinosa
[2021-10-30] MEDS ORDERED: hydrALAZINE HCL 20 MG/ML VIAL IV PRN (13:24)
--- NOTE | 2021-10-30 15:34 | Hospitalist Progress Note ---
Date of Service October 30, 2021 Assessment & Plan (1) Hypertensive urgency: Plan: Patient presents with an Initial BP 280/116, so was given 10 mg IV labetalol and subsequent 5 mg IV labetalol for persistent severe hypertension. BP still high despite this, so an additional 10 mg IV hydralazine was ordered. -BP now under better control following addition of HCTZ 25mg PO to her home Amlodipine 10mg Now 160/69mmhg (2) Hypertension: Plan: Now under better control will add HCTZ to her regimen of Amlodipine (3) TIA (transient ischemic attack): Plan: - Full resolution of symptoms upon arrival to ED. Did take Tylenol at home. - MRI ordered. - Echo in a.m. - CBC, BMP, HbA1c, PT/INR, lipid panel in a.m. - PT, OT, ST to evaluate in a.m. - Avoid hypotension, hypoglycemia. - CT of head, CTA of head and neck findings as above. - Consult neurology for TIA/CVA management. - Consult vascular surgery for multiple areas of carotid/vertebral stenosis. - Telemetry for 24 hours, evaluate for episodes of atrial fibrillation. - Empirically started on amlodipine 10 mg daily, aspirin 81mg daily, Plavix 75 mg daily, Lipitor 40 mg daily. (4) Hyponatremia: Plan: - Resolved (5) Fall: Plan: I got a call from the RN that patient said she got dizzy and was found on the bathroom floor Could be orthostatic due to lowering of BP Will obtain CT head since fall was unwitnessed (6) Carotid stenosis: Plan: seen on CTA However, patient said she doesnt want further investigations/work up because she has a good life now and would not want to be going in and out of doctors office Plan: - Admit to PCU. - SCDs, heparin for VTE ppx. - Full Code. Admission and Anticipated Discharge Date Admission Date: October 29, 2021 Subjective patient seen and examined, says she wants to be discharged Review of Systems Review of Systems: All systems reviewed are negative, apart from the ones contained in the history. Physical Exam Physical Exam: The patient is awake, alert and oriented 3, well developed and well nourished, normocephalic and atraumatic, lying in bed and in no acute distress. HEENT--PERRL, EOMI, mucous membranes and oropharynx mildly dry Neck--supple. No JVD. No bruits. Thyroid normal, trachea midline, no adenopathy. Heart--normal S1 and S2. No murmurs, rubs or gallops. Lungs--clear bilaterally, no respiratory distress, no accessory muscle use. Abdomen--normal bowel sounds and soft. Mild epigastric and left sided abdominal pain Extremities--no cyanosis or clubbing. No edema. Dermatologic--normal skin turgor, normal color, no abnormal lymph nodes, no rash. Neurologic--cranial nerves II through XII grossly intact. Rheumatologic--normal range of motion. Psychiatric--normal affect. Results & Data Results & Data ([facility]) Vital Signs (Past 12 Hours) Vital Signs Temp Pulse Pulse Pulse Resp BP BP 10/30/21 15:01 97.3 F L 96 H 16 160/69 H 10/30/21 14:05 88 198/74 H 10/30/21 12:55 82 202/67 H 10/30/21 12:54 86 200/67 H 10/30/21 11:37 97.9 F 84 19 202/74 H 10/30/21 09:46 195/81 H 212/75 H 10/30/21 08:21 72 10/30/21 07:49 97.7 F 71 19 217/78 H 10/30/21 04:08 72 194/71 H Pulse Ox 10/30/21 15:01 95 10/30/21 14:05 10/30/21 12:55 10/30/21 12:54 10/30/21 11:37 97 10/30/21 09:46 10/30/21 08:21 10/30/21 07:49 98 10/30/21 04:08 PG Care Time/CCT Total # of Minutes Spent Total Time Spent with Patient: Total time spent is greater than 50% in coordination of care (as documented) at patient's floor/unit and/or counseling patient: Coding Level of Care Code 96499 Subseq Hosp Care Lvl 2 Diagnoses Hypertension I10 Hypertension type: unspecified TIA (transient ischemic attack) G45.9 Hyponatremia E87.1 Hypertensive urgency I16.0 Fall W19.XXXA Carotid stenosis I65.29 Time Spent (min) 35 (1) Hypertension Hypertension type: unspecified Qualified Code(s): I10 - Essential (primary) hypertension
--- NOTE | 2021-10-30 17:50 | XRay Report ---
XR hip RT 2V w pelvis CLINICAL HISTORY: pain after fall TECHNIQUE: 2 views of the right hip and single frontal view of the pelvis were obtained. Comparison: None available at the time of this dictation. FINDINGS: There is no evidence of an acute fracture. Degenerative changes are seen in the hip joint. Vascular c alcifications are noted. IMPRESSION: Degenerative changes without evidence of acute abnormality. ACT 112: Negative or not required by law. Electronically signed by: Jamal Calvert M.D. 10/30/2021 5:49 PM
--- NOTE | 2021-10-30 18:23 | CT Scan Report ---
CT head/brain wo con CLINICAL HISTORY: syncope Technique: Contiguous axial CT images of the head were acquired from the base of the skull to the leilani simón without intravenous contrast administration. Images were viewed in brain, subdural and bone [facility]. Automated dose lowering techniques and/or adjustment according to patient size were utilized for this exam. Comparison: Comparison is made to CT head 10/29/2021 Findings: Areas of decreased attenuation are present in the periventricular and subcortical white matter bilate rally consistent with small vessel ischemic disease. Generalized cerebral atrophy with commensurate e nlargement of the ventricles, sulci, and cisterns is also present. There is no acute intracranial hem orrhage or evidence of acute territorial infarction. No shift of the midline structures, mass effect, or extra-axial abnormalities are shown. Atherosclerotic calcifications are present in the intracran ial segments of the internal carotid arteries. Old lacunar infarct in the left periventricular white matter is seen. Imaged portions of the paranasal sinuses and mastoid air cells are clear. The orbits appear normal. There are no acute fractures of the calvaria or scalp swelling. Impression: No acute intracranial hemorrhage, no evidence of acute territorial infarction or other acute intracra nial disease process. ACT 112: Negative or not required by law. Electronically signed by: Jamal Calvert M.D. 10/30/2021 6:21 PM
[2021-10-31] MEDS: HEPARIN SOD 5,000 UNIT/0.5 ML VIAL SQ SCH (05:26)
[2021-10-31 07:07] LABS: BUN Creatinine Ratio 20.9 (10-20); Calcium 8.6 mg/dl (8.5-10.1); Creatinine Clr Calc Pharmacy 30.3 ml/min; Est GFR (African American) 49.5 ml/min; Est GFR (Non-African American) 42.7 ml/min; Potassium 3.6 mmol/L (3.5-5.1)
[2021-10-31 08:28] LABS: Estimated Average Glucose 114 mg/dl; Hemoglobin A1C 5.6 % (4.5-5.6)
[2021-10-31] MEDS: amLODIPine BESYLATE 5 MG TAB PO SCH (08:42)
[2021-10-31] MEDS: CLOPIDOGREL BISULFATE 75 MG TAB PO SCH (08:43)
[2021-10-31] MEDS: ASPIRIN 81 MG ECTAB PO SCH (08:43)
[2021-10-31] MEDS: ATORVASTATIN 40 MG TAB PO SCH (08:43)
--- NOTE | 2021-10-31 08:50 | Neurology Consultation ---
Date of Consultation October 31, 2021 Assessment & Plan (1) Carotid stenosis: (2) TIA (transient ischemic attack): Transient ischemic attack localizing to the right cerebral hemisphere, occurring in the context of hypertensive urgency and multifocal stenosis of the right carotid system, 70% stenosis at the origin of the right internal carotid artery, 90% stenosis at the right carotid bulb. Consult vascular surgery regarding the right carotid stenosis which is likely clinically symptomatic. Patient will need ongoing control of hypertension. She was not taking any antihypertensive as an outpatient. Continue medical management of hypertensive urgency, acute systolic blood pressure goal around 150 mmHg. Agree with dual antiplatelet therapy for the time being, daily low-dose aspirin and clopidogrel 75 mg/day. Would typically only recommend dual antiplatelet therapy for 3 weeks, however, after which, would transition to monotherapy (either aspirin 81 mg/day or clopidogrel 75 mg/day would be appropriate). Agree with starting atorvastatin. No further immediate neurologic recommendations. History of Present Illness Reason for Consultation: The patient is an 85-year-old female with a chief complaint of left facial numbness and a tendency to list to the left while walking that began late yesterday afternoon. Her symptoms resolved upon awakening this morning. She has never had similar symptoms previously, no known history of stroke or TIA. She did report an associated headache which has resolved as well. She denies experiencing any associated vision disturbance, vertigo, change in speech or s wallowing. Attending Physician: Amarjit Cohen MD Allergies Allergy/AdvReac Type Severity Reaction Status Date / Time onion AdvReac NAUSEA, Verified 10/29/21 16:22 HEADACHE Home Medications Medication Instructions Recorded Confirmed Type Beet Root 1 tab PO DAILY 10/29/21 10/29/21 History acetaminophen 500 mg tablet 1,000 mg PO Q6H PRN 10/29/21 10/29/21 History (Tylenol Extra Strength) cholecalciferol (vitamin D3) 25 0 mcg PO DAILY 10/29/21 10/29/21 History mcg (1,000 unit) tablet (Vitamin D3) cyanocobalamin (vitamin B-12) 100 0 mcg PO DAILY 10/29/21 10/29/21 History mcg tablet (Vitamin B-12) magnesium oxide 0 mg PO DAILY 10/29/21 10/29/21 History multivitamin 1 tab PO DAILY 10/29/21 10/29/21 History vitamin B complex 1 tab PO DAILY 10/29/21 10/29/21 History Patient History Medical History CVA (cerebral vascular accident) seen on 10/28/[address] Hypertension Surgical History No significant past surgical history Family History Other Family history non-contributory Social History Smoking Status: Never smoker Hx Alcohol Use: Yes Hx Substance Use: No Preferred Language: Welsh Communication Ability: Effective 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 Beliefs That Will Affect Care: Buddhist marital status: / Current Living Situation: Alone Feels Safe at Home: Yes Assistive Devices: None Assistive Devices Comment: partial Review of Systems Constitutional: no fever and no chills Eyes: no blind spots and no diplopia Ear, Nose, Mouth, Throat: no ear pain and no hearing loss Respiratory: no cough and no dyspnea Cardiovascular: no chest pain and no palpitations Gastrointestinal: no constipation and no diarrhea/loose stools Genitourinary: no urinary urgency and no urinary incontinence Musculoskeletal: no muscle weakness and no muscle atrophy Integumentary: no rash and no lesions Neurologic: as per Subjective / HPI Psychiatric: no behavioral changes, no depression, no abnormal sleep pattern and no anxiety Hematologic / Lymphatic: no easy bruising and no lymphadenopathy Exam (Neuro) Constitutional: well developed and well nourished; no acute distress Eyes: normal visual padgett by confrontation, PERRL, normal accommodation and EOM intact bilaterally; no fundoscopic abnormality, no nystagmus and no papilledema Cardiovascular: Vessels: normal carotid upstroke; no carotid bruit Neurologic: Oriented to:: Person, Place and Time Memory: Short Term Intact and Remote Intact Attention: Span Intact and Concentration Intact Language: Naming Objects and Repeating Phrases Speech Fluency: negative Dysarthria Speech Aphasia: negative Aphasia Fund of Knowledge: Current Events, Past History and Vocabulary Cranial Nerves: Normal II (Visual padgett full to confrontation, visual acuity normal), III, IV, (Pupils equal round reactive to light and accommodation, eye movements normal), V (Facial sensation intact), VII (There is no facial droop or weakness), VIII (Hearing intact), IX, X (Palate elevates to midline), XI (Shoulder shrug intact) and XII (Tongue protrudes to midline) Motor Strength: Normal Lower Extremities and Normal Upper Extremities; negative Pronator Drift Motor Tone: Normal Lower Extremities and Normal Upper Extremities Muscle Bulk/Involuntary Movements: No Involuntary Movements; negative Muscle Atrophy Sensation: Light Touch Intact, Pain/Temperature Intact, Vibration Intact and Proprioception Intact Coordination: Normal; negative Limited Balance, Dysdiadochokinesia, Finger-Nose Abnormal or Heel-Randall Abnormal Deep Tendon Reflexes: Rt Triceps: 2+, Lt Triceps: 2+, Rt Biceps: 2+, Lt Biceps: 2+, Rt Brachioradialis: 2+, Lt Brachioradialis: 2+, Rt Patellar: 2+, Lt Patellar: 2+, Rt Ankle: 2+ and Lt Ankle: 2+ Special Tests: negative Babinski Present Gait: Normal Station and Gait Results & Data ([facility]) Vital Signs (Past 12 Hours) Vital Signs Temp Pulse Pulse Pulse Resp BP BP 10/31/21 07:49 36.5 C 75 20 189/76 H 10/31/21 05:45 37.0 C 70 14 156/78 H 10/31/21 00:53 36.8 C 83 13 157/68 H 10/30/21 23:18 82 Pulse Ox 10/31/21 07:49 97 10/31/21 05:45 96 10/31/21 00:53 96 10/30/21 23:18 Laboratory Results WBC 6.02, hemoglobin 12.9, hematocrit 37.8, MCV 87.9, platelet count 277, sodium 136, potassium 3.6, BUN 24, creatinine 1.15, glucose 100, calcium 8.6, magnesium 2.0, AST 17, ALT 21, cholesterol 239, LDL 170, VLDL 20, HDL 49. Diagnostic Findings CT of the head reveals atrophy and chronic small vessel ischemic disease as well as chronic lacunar infarcts involving the head of the thalamus on the left and basal ganglia on the left. CT angiography of the head and neck reveal marked stenosis of the right carotid artery at the level of the carotid bulb, approximately 90%. 70% stenosis of the origin of the right internal carotid artery. 50% stenosis involving the left carotid bulb. 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 Brain MRI negative for acute stroke. Coding Level of Care Code 10126 Initial In Care Lvl 3 Diagnoses Carotid stenosis I65.29 TIA (transient ischemic attack) G45.9
[2021-10-31] MEDS ORDERED: hydroCHLOROthiazide 25 MG TAB PO SCH (09:00)
[2021-10-31] MEDS ORDERED: STROKE PATIENT DISCHARGE STA (11:20)
--- NOTE | 2021-10-31 12:21 | Pharmacy Report ---
Pharmacist Stroke Counseling - Date of Service October 31, 2021 - Scope: Pharmacy has been consulted to provide medication discharge counseling for this patient admitted with transient ischemic attack as per the Pharmacist Discharge Counseling for Stroke Patients Protocol. - Medications on Discharge: Home Medications Medication Instructions Recorded Confirmed Beet Root 1 tab PO DAILY 10/29/21 10/29/21 acetaminophen 500 mg tablet 1,000 mg PO Q6H PRN 10/29/21 10/29/21 (Tylenol Extra Strength) cholecalciferol (vitamin D3) 25 0 mcg PO DAILY 10/29/21 10/29/21 mcg (1,000 unit) tablet (Vitamin D3) cyanocobalamin (vitamin B-12) 100 0 mcg PO DAILY 10/29/21 10/29/21 mcg tablet (Vitamin B-12) magnesium oxide 0 mg PO DAILY 10/29/21 10/29/21 multivitamin 1 tab PO DAILY 10/29/21 10/29/21 vitamin B complex 1 tab PO DAILY 10/29/21 10/29/21 New Rx's Medication Instructions Recorded amlodipine 5 mg tablet (Norvasc) 10 mg PO QAM 90 Days #180 tab 10/31/21 aspirin 81 mg tablet,delayed 81 mg PO QAM 90 Days #90 tab 10/31/21 release atorvastatin 40 mg tablet 40 mg PO QAM 90 Days #90 tab 10/31/21 clopidogrel 75 mg tablet 75 mg PO QAM 21 Days #21 tab 10/31/21 hydrochlorothiazide 25 mg tablet 25 mg PO QAM 90 Days #90 tab 10/31/21 - Action: The above medications, specifically ones for stroke treatment/prophylaxis, have been reviewed in detail with the patient and patient prior b2b outside sales representative to discharge. This includes indication, common adverse reactions, drug interactions, and medication administration. Medication assessment counselor has been employed using the teach-back method to ensure understanding. - Outcome: The patient and patient b2b outside sales representative have demonstrated understanding of the medications. Additional comments: -no questions Thank you for allowing pharmacy to be involved in the care of this patient. Please call [phone] with any additional questions
--- NOTE | 2021-10-31 12:27 | Discharge Summary ---
Date of Service October 31, 2021 Admission HPI Per Admitting Provider Myesha Jhonson is an 85-year-old female with a past medical history significant for hypertension who presents from home today with trouble walking. Around 11:50 AM this morning, she had pain on left side of her head and behind her eye and also noticed that the left side of her face felt cool. At the same time, she had difficulty ambulating. She called her son, who transported her to the ED for further evaluation. He also notes that while she was walking out of the car, she had an unsteady gait and was bleeding towards the left. Upon arrival, all her symptoms have resolved. Aside from the above, patient without any other complaints, no chest pain, palpitations, shortness breath, cough, abdominal, nausea, vomiting, no focal weakness/numbness/tingling, no slurred speech, no word finding difficulty. No visual changes. She has not seen a doctor for several years. She was on several BP medications for many years, however 2 years ago she stopped them altogether because despite being on them, her pressure was still "very high", reporting they were in the 200s. She felt there was no benefit to taking them. She has not seen a provider since then. 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 She initially presented to the ED very hypertensive 280/116, tachycardic heart rate in 90s, otherwise vital signs within normal limits. Head CT with evidence of prior lacunar infarcts, no acute process noted. 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 Principal Diagnosis TIA, carotid stenosis Discharge Exam The patient is awake, alert and oriented 3, well developed and well nourished, normocephalic and atraumatic, lying in bed and in no acute distress. HEENT--PERRL, EOMI, mucous membranes and oropharynx mildly dry Neck--supple. No JVD. No bruits. Thyroid normal, trachea midline, no adenopathy. Heart--normal S1 and S2. No murmurs, rubs or gallops. Lungs--clear bilaterally, no respiratory distress, no accessory muscle use. Abdomen--normal bowel sounds and soft. Mild epigastric and left sided abdominal pain Extremities--no cyanosis or clubbing. No edema. Dermatologic--normal skin turgor, normal color, no abnormal lymph nodes, no rash. Neurologic--cranial nerves II through XII grossly intact. Rheumatologic--normal range of motion. Psychiatric--normal affect. Discharge Data Allergies Allergy/AdvReac Type Severity Reaction Status Date / Time onion AdvReac NAUSEA, Verified 10/29/21 16:22 HEADACHE Consultations 10/29/21 14:25 ED Decision to Admit Stat 10/29/21 15:30 Consult Neurology Routine Ordered Studies 10/29/21 12:46 CT angio head w con Stat CT angio neck with con Stat CT head/brain wo con Stat 10/30/21 08:58 MR brain wo con Routine 10/30/21 15:11 CT head/brain wo con Routine Hospital Course (1) Hypertensive urgency: Patient presents with an Initial BP 280/116, so was given 10 mg IV labetalol and subsequent 5 mg IV labetalol for persistent severe hypertension. BP still high despite this, so an additional 10 mg IV hydralazine was ordered. -BP now under better control following addition of HCTZ 25mg PO to her home Amlodipine 10mg Now 160/69mmhg (2) Hypertension: Now under better control will add HCTZ to her regimen of Amlodipine (3) TIA (transient ischemic attack): - Full resolution of symptoms upon arrival to ED. Did take Tylenol at home. - MRI did not show any acute pathology - Echo did not show any wall motion abnormalities or shunts - CBC, BMP, HbA1c, PT/INR, lipid panel in a.m. - PT, OT, ST to evaluate in a.m. - Avoid hypotension, hypoglycemia. - CT of head, CTA of head and neck findings as above. - Patient refused Vascular consultation many times. She was told about the risk of her untreated significant carotid stenosis - Empirically started on amlodipine 10 mg daily, aspirin 81mg daily, Plavix 75 mg daily, Lipitor 40 mg daily. (4) Hyponatremia: - Resolved (5) Fall: I got a call from the RN that patient said she got dizzy and was found on the bathroom floor Could be orthostatic due to lowering of BP CT head did not show any acute pathology (6) Carotid stenosis: seen on CTA However, patient said she doesnt want further investigations/work up because she has a good life now and would not want to be going in and out of doctors office. she declined vascular surgery consult - Admit to PCU. - SCDs, heparin for VTE ppx. - Full Code. Total Time Total Time Spent Total Time Spent (In Minutes): 35 Discharge Plan Discharge Items Patient Disposition: Home - Self-Care Reason For Visit: TIA/UNCONTROLLED HTN Discharge Diagnosis: TIA Activity: Resume your previous activity Non-emergency contact: Primary Care Provider Call non-emergency contact if: you have any medication questions Follow-up/Referrals: PCP,NO [Primary Care Provider] - Diet: Regular Addtl Attending Provider Instructions: please make appointment to follow up with your PCP Take Aspirin and Plavix for 3 weeks and after that, take only Aspirin Pending Studies at Discharge: No Stand-Alone Forms: Medications to Prevent Stroke, [email or web address], Smoking Cessation Medications and DC Order Prescriptions: New atorvastatin 40 mg Tablet 40 mg PO QAM 90 Days Qty: 90 RF: 0 clopidogrel 75 mg Tablet 75 mg PO QAM 21 Days Qty: 21 RF: 0 amlodipine [Norvasc] 5 mg Tablet 10 mg PO QAM 90 Days Qty: 180 RF: 0 aspirin 81 mg Tablet,Delayed Release (Dr/Ec) 81 mg PO QAM 90 Days Qty: 90 RF: 0 hydrochlorothiazide 25 mg Tablet 25 mg PO QAM 90 Days Qty: 90 RF: 0 Continued multivitamin Tablet 1 tab PO DAILY RF: 0 cyanocobalamin (vitamin B-12) [Vitamin B-12] 100 mcg Tablet 0 mcg PO DAILY RF: 0 acetaminophen [Tylenol Extra Strength] 500 mg Tablet 1,000 mg PO Q6H PRN (Reason: Pain) RF: 0 vitamin B complex Tablet 1 tab PO DAILY RF: 0 cholecalciferol (vitamin D3) [Vitamin D3] 25 mcg (1,000 unit) Tablet 0 mcg PO DAILY RF: 0 magnesium oxide 400 mg magnesium Tablet 0 mg PO DAILY RF: 0 Beet Root 1 tab PO DAILY RF: 0 Discharge Orders: Discharge Order (Routine); Ordered 10/31/21 Ordered By: Amarjit Cohen Admission Data Admit Date/Time: 10/29/21 15:13 Attending Provider: Amarjit Cohen Admit Provider: Toi Beaver Primary Care Provider: PCP,NO Other Providers: Deshaun Nance ; Toi Beaver Other Interventions: Discharge Summary Assessment (RN) Last Done: 10/31/21 11:42 Coding Level of Care Code D/C DAY MANAGEMENT >30 MINS Diagnoses Hypertensive urgency I16.0 Hypertension I10 Hypertension type: unspecified TIA (transient ischemic attack) G45.9 Hyponatremia E87.1 Fall W19.XXXA Carotid stenosis I65.29 Time Spent (min) 35
== END 2021-10-31 12:06 | disposition home or self-care (01) | DRG 69 ==
LOC: EDBD → ED 12:32 → 2S 15:13 → SUATTDRO 15:13 → 2S 16:31
DX: I10 Essential (primary) hypertension; E87.1 Hypo-osmolality and hyponatremia; Y92.231 Patient bathroom in hospital as the place of occurrence of the external cause; G45.9 Transient cerebral ischemic attack, unspecified; I65.02 Occlusion and stenosis of left vertebral artery; Z91.018 Allergy to other foods; I65.23 Occlusion and stenosis of bilateral carotid arteries; I16.0 Hypertensive urgency; W19.XXXA Unspecified fall, initial encounter; Z86.73 Personal history of transient ischemic attack (TIA), and cerebral infarction without residual deficits

== ENCOUNTER 2021-10-31 13:26 | Inpatient (IN) ==
[2021-10-31 14:23] LABS: Basophils # (auto) 0.06 K/uL (0-0.2); Basophils % (auto) 0.8 %; Eosinophils # (auto) 0.16 K/uL (0-0.50); Eosinophils % (auto) 2.2 %; Hemoglobin 13.5 g/dl (12.0-16.0); Immature Granulocytes # (auto) 0.02 K/uL (0.00-0.02); Immature Granulocytes % (auto) 0.3 %; Lymphocytes # (auto) 1.25 K/uL (1.2-3.4); Lymphocytes % (auto) 17.2 %; Mean Corpuscular Hemoglobin 29.7 pg (25.0-34.0); Mean Corpuscular Hgb Conc 33.8 g/dL (32.0-36.0); Mean Corpuscular Volume 87.9 fL (80.0-100.0); Mean Platelet Volume 10.3 fL (9.4-12.3); Monocytes # (auto) 0.67 K/uL (0.24-0.82); Monocytes % (auto) 9.2 %; Neutrophils # (auto) 5.11 K/uL (1.4-6.5); Neutrophils % (auto) 70.3 %; Platelet Count 284 K/uL (130-400); RDW Coefficient of Variation 13.2 % (11.5-14.5); RDW Standard Deviation 43.1 fL (36.4-46.3); Red Blood Count 4.55 M/uL (3.93-5.22); White Blood Count 7.27 K/ul (4.8-10.8)
--- NOTE | 2021-10-31 14:23 | XRay Report ---
XR chest 1V portable CLINICAL HISTORY: Chest Pain. COMPARISON STUDY: 10/29/2021 TECHNIQUE: 1 view of the chest FINDINGS: Single frontal view of the chest demonstrates the cardiomediastinal silhouette to be within normal li mits. The lungs are clear of alveolar opacities. There is no evidence for pleural effusion. There is no evidence for vascular congestion. There is no acute osseous pathology. IMPRESSION: 1. No acute cardiopulmonary disease. There is no significant interval change. ACT 112: Negative or not required by law. Electronically signed by: Subhash Bonilla M.D. 10/31/2021 2:22 PM
--- NOTE | 2021-10-31 14:44 | Electrocardiogram Report ---
Test Reason : Blood Pressure : / mmHG Vent. Rate : 087 BPM Atrial Rate : 087 BPM P-R Int : 146 ms QRS Dur : 072 ms QT Int : 376 ms P-R-T Axes : 047 003 030 degrees QTc Int : 452 ms Poor data quality, interpretation may be adversely affected Normal sinus rhythm When compared with ECG of 29-OCT-2021 12:56, No significant change was found Confirmed by Eleazar Espinosa ([id number]) on 10/31/2021 2:44:13 PM Referred By: Confirmed By:Richard Espinosa
[2021-10-31] MEDS ORDERED: LABETALOL HCL IV 5 MG/ML 20ML IV STA (14:47)
[2021-10-31 14:48] LABS: Albumin Globulin Ratio 1.3 (0.9-2); Albumin Level 4.4 gm/dl (3.4-5.0); BUN Creatinine Ratio 19.3 (10-20); Bilirubin,Total 0.5 mg/dl (0.2-1.0); Creatinine Clr Calc Pharmacy 26.4 ml/min; Est GFR (African American) 40.8 ml/min; Est GFR (Non-African American) 35.2 ml/min; Globulin 3.3 gm/dl (2.5-4.0); Total Protein 7.7 gm/dl (6.0-8.3)
--- NOTE | 2021-10-31 14:48 | History & Physical Report ---
Date of Service October 31, 2021 Assessment & Plan (1) Hypertensive urgency: Plan: Shortly after she was discharged, Patient presents with an Initial BP 220/90 so was given 10 mg IV labetalol and subsequent 5 mg IV labetalol for persistent severe hypertension. BP still high despite this, so an additional 10 mg IV hydralazine was ordered. Will resume her recently started HCTZ and Amlodipine, may add clonidine Will consult cardiology (2) Syncope: Plan: Patient experienced yet another syncopal episode Could be due to blood pressure changes 2 D ECHO did not show any structural heart abnormality (3) Carotid stenosis: Plan: Significant right carotid seen on CTA However, patient said she doesnt want further investigations/work up because she has a good life now and would not want to be going in and out of doctors office Will consult vascular surgery anyway Continue Plavix and ASA and Atorvastatin (4) TIA (transient ischemic attack): Plan: Full resolution of symptoms upon arrival to ED. Did take Tylenol at home. 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 - CT of head, CTA of head and neck findings as above. - Assessed by Neurology, appreciate recs - Consult vascular surgery for multiple areas of carotid/vertebral stenosis. - Telemetry for 24 hours, evaluate for episodes of atrial fibrillation. Plan: - Admit to PCU. - SCDs History of Present Illness Chief Complaint: syncope Primary Care Provider: NO PCP This is an 85-year-old female with a past medical history significant for hypertension who presents to the ED on account of syncopal episode. Patient was just discharged from this hospital a couple of hours prior to presentation. During her last admission, her BP came under better control with the introduction of Amlodipine and HCTZ, however, patient refused further hospital stay for better optimization of her BP and insisted on being discharged. She was also impressed upon on several occassions to get a vascular surgery consult on account of her right carotid stenosis, however, each time, she refused. She has not seen a doctor for several years. She was on several BP medications for many years, however 2 years ago she stopped them altogether because despite being on them, her pressure was still "very high", reporting they were in the 200s. She felt there was no benefit to taking them. She has not seen a provider since then. 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 Today in the the ED Her BP was once again in the 200's systolic. she will be admitted once again to the hospital for further mgt. During her last admission, a Head CT with evidence of prior lacunar infarcts, no acute process noted. 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 Allergies Allergy/AdvReac Type Severity Reaction Status Date / Time onion AdvReac NAUSEA, Verified 10/29/21 16:22 HEADACHE Home Medications Medication Instructions Recorded Confirmed Type Beet Root 1 tab PO DAILY 10/29/21 10/29/21 History acetaminophen 500 mg tablet 1,000 mg PO Q6H PRN 10/29/21 10/29/21 History (Tylenol Extra Strength) cholecalciferol (vitamin D3) 25 0 mcg PO DAILY 10/29/21 10/29/21 History mcg (1,000 unit) tablet (Vitamin D3) cyanocobalamin (vitamin B-12) 100 0 mcg PO DAILY 10/29/21 10/29/21 History mcg tablet (Vitamin B-12) magnesium oxide 0 mg PO DAILY 10/29/21 10/29/21 History multivitamin 1 tab PO DAILY 10/29/21 10/29/21 History vitamin B complex 1 tab PO DAILY 10/29/21 10/29/21 History amlodipine 5 mg tablet (Norvasc) 10 mg PO QAM 90 Days #180 tab 10/31/21 Rx aspirin 81 mg tablet,delayed 81 mg PO QAM 90 Days #90 tab 10/31/21 Rx release atorvastatin 40 mg tablet 40 mg PO QAM 90 Days #90 tab 10/31/21 Rx clopidogrel 75 mg tablet 75 mg PO QAM 21 Days #21 tab 10/31/21 Rx hydrochlorothiazide 25 mg tablet 25 mg PO QAM 90 Days #90 tab 10/31/21 Rx Past Med/Surg History Medical History CVA (cerebral vascular accident) seen on 10/28/[address] Hypertension Surgical History No significant past surgical history Family History Other Family history non-contributory Social History Smoking Status: Never smoker Hx Alcohol Use: Yes Hx Substance Use: No Preferred Language: Yi Communication Ability: Effective Skid Machine Operator Required: No Beliefs That Will Affect Care: Islam marital status: / Current Living Situation: Alone Feels Safe at Home: Yes Assistive Devices: None Review of Systems Review of Systems: All systems reviewed are negative, apart from the ones contained in the history. Physical Exam Physical Exam: The patient is awake, alert and oriented 3, well developed and well nourished, normocephalic and atraumatic, lying in bed and in no acute distress. HEENT--PERRL, EOMI, mucous membranes and oropharynx mildly dry Neck--supple. No JVD. No bruits. Thyroid normal, trachea midline, no adenopathy. Heart--normal S1 and S2. No murmurs, rubs or gallops. Lungs--clear bilaterally, no respiratory distress, no accessory muscle use. Abdomen--normal bowel sounds and soft. Mild epigastric and left sided abdominal pain Extremities--no cyanosis or clubbing. No edema. Dermatologic--normal skin turgor, normal color, no abnormal lymph nodes, no rash. Neurologic--cranial nerves II through XII grossly intact. Rheumatologic--normal range of motion. Psychiatric--normal affect. Results & Data Results & Data ([facility]) Vital Signs (Past 12 Hours) Vital Signs Temp Pulse Resp BP Pulse Ox 10/31/21 14:00 79 19 192/73 H 10/31/21 13:36 90 18 98 10/31/21 13:30 97.9 F 91 H 19 210/111 H 98 Code Status & VTE Plan VTE Prophylaxis Plan VTE Prophylaxis will be ordered: Yes PG Care Time/CCT Total # of Minutes Spent Total Time Spent with Patient: Total time spent is greater than 50% in coordination of care (as documented) at patient's floor/unit and/or counseling patient: Coding Level of Care Code 07950 Initial Inpt Care Lvl 1 Diagnoses Hypertensive urgency I16.0 Carotid stenosis I65.29 TIA (transient ischemic attack) G45.9 Syncope R55 Time Spent (min) 35
[2021-10-31 14:52] LABS: Troponin I High Sensitivity 25.4 pg/ml (0-14)
--- NOTE | 2021-10-31 16:22 | Emergency Department Note ---
Impression & Plan Hypertension, Syncope, TIA (transient ischemic attack) ED Provider Note NAME: SHRUTHI MORRISSEY AGE: 85 SEX: F : 1935 ARRIVES VIA: Ambulance INFORMANT: Patient ED PROVIDER(S): Fran Mendoza DO CHIEF COMPLAINT: near syncope HPI: Patient is an 84-year-old female who presents the ER for near syncopal event. She was just recently seen and admitted on the in the hospital and was discharged about 1 to 2 hours prior to arrival following a stay for TIA and significant hypertension with systolic pressures in the 250s. She was placed on medications and discharged. She did have CTAs which showed carotid stenosis which was fairly significant and they questioned if this was causing her symptoms. She was at [place] today and walked and became very lightheaded and everything went black but she did not completely pass out. She denies any chest pain or shortness of breath with this. She notes that she was awake the whole time. Denies any weakness or numbness in the arms or legs. No belly pain. No other exacerbating or remitting factors. ROS: See above HPI for pertinent positives & negatives. A total of 10 systems reviewed and were otherwise negative. PAST MEDICAL HISTORY:See Below PAST SURGICAL HISTORY:See Below FAMILY HISTORY:See Below SOCIAL HISTORY:See Below HOME MEDICATIONS:See Below ALLERGIES:See Below VITALS:See Below PHYSICAL EXAMINATION: GENERAL: Sitting up in bed, alert, well appearing, well nourished, no distress, non-toxic EYE EXAM: normal conjunctiva. PERRL and EOM's grossly intact. OROPHARYNX: no exudate, no erythema, lips, buccal mucosa, and tongue normal and mucous membranes are moist NECK: supple, no nuchal rigidity, no adenopathy, non-tender LUNGS: Clear to auscultation. Normal chest wall mechanics HEART: no murmurs, S1 normal and S2 normal ABDOMEN: abdomen soft, non-tender, normo-active bowel sounds, no masses, no rebound or guarding. UPPER EXTREMITIES: upper extremities are grossly normal. LOWER EXTREMITIES: No pitting edema. NEURO EXAM: Normal sensorium, cranial nerves II-XII intact, normal speech, no weakness of arms, no weakness of legs. No drift. Finger to nose intact. Gross sensation intact. MEDICAL DECISION MAKING: Patient is an 85-year-old female who I saw on admitted on the of this month and was just discharged 2 hours prior to arrival. When she was in [place] she became very lightheaded and everything went black and she almost passed out. She fell to the ground. She was brought in by EMS. Systolic pressures were in the 230s. Upon review of her chart systolic pressures were fairly elevated throughout her stay in the hospital. IV was established blood work was obtained. Labs show no significant leukocytosis or anemia. BMP with mild hyponatremia 134. LFTs bilirubin was unremarkable. Troponin was 25 which was consistent with the previous. Discussed with the hospitalist for further evaluation due to the persistent elevation of blood pressures. She declined CT head. She was given labetalol for the elevated blood pressure with systolics trended down to the 170s from 230s. Triage Nursing notes reviewed. Limited review of prior medical records performed Vital Signs: reviewed and remarkable for HTN Differential diagnosis: Differential diagnosis includes etiologies such as vasovagal event, infection, hypoglycemia, electrolyte abnormalities, cardiac sources, intracerebral event, toxicologic, neurologic, as well as others were entertained. ER treatment provided: See below Diagnostics interpreted by me: ECG: Sinus rhythm rate 87 Normal axis No PVCs QTC 452 Cardiac Monitoring: An order was placed for continuous cardiac monitoring. The monitor shows a rate of 80 with sinus rhythm. Laboratory studies: As stated above and show below. Imaging studies: Declined CT head Chest x-ray was unremarkable Consultation(s): Discussed with Dr. Ocasio who evaluate the patient at bedside as the patient was just discharged from his service 2 hours ago Procedures: none Critical Care: None Past Med/Surg History Medical History CVA (cerebral vascular accident) seen on 10/28/[address] Hypertension Surgical History No significant past surgical history Family History Other Family history non-contributory Social History Smoking Status: Never smoker Hx Alcohol Use: Yes Hx Substance Use: No Preferred Language: Faroese Communication Ability: Effective Welder Production Line Arc Required: No Beliefs That Will Affect Care: Voodoo marital status: / Current Living Situation: Alone Feels Safe at Home: Yes Assistive Devices: None Allergies Allergies Allergy/AdvReac Type Severity Reaction Status Date / Time onion AdvReac NAUSEA, Verified 10/31/21 15:09 HEADACHE ALLIUM AdvReac Intermediate NAUSEA/HEADACHE--ONIONS, Uncoded 10/31/21 15:09 GARLIC, SCALLIONS FAMILY Home Meds Home Medications Medication Instructions Recorded Confirmed Beet Root 1 tab PO DAILY 10/29/21 10/31/21 acetaminophen 500 mg tablet 1,000 mg PO Q6H PRN 10/29/21 10/31/21 (Tylenol Extra Strength) cholecalciferol (vitamin D3) 25 0 mcg PO DAILY 10/29/21 10/31/21 mcg (1,000 unit) tablet (Vitamin D3) cyanocobalamin (vitamin B-12) 100 0 mcg PO DAILY 10/29/21 10/31/21 mcg tablet (Vitamin B-12) magnesium oxide 0 mg PO DAILY 10/29/21 10/31/21 multivitamin 1 tab PO DAILY 10/29/21 10/31/21 vitamin B complex 1 tab PO DAILY 10/29/21 10/31/21 Previous Rx's Medication Instructions Recorded amlodipine 5 mg tablet (Norvasc) 10 mg PO QAM 90 Days #180 tab 10/31/21 aspirin 81 mg tablet,delayed 81 mg PO QAM 90 Days #90 tab 10/31/21 release atorvastatin 40 mg tablet 40 mg PO QAM 90 Days #90 tab 10/31/21 clopidogrel 75 mg tablet 75 mg PO QAM 21 Days #21 tab 10/31/21 hydrochlorothiazide 25 mg tablet 25 mg PO QAM 90 Days #90 tab 10/31/21 Results & Data (ED) Vital Signs Vital Signs - 24 hr 10/31/21 13:30 10/31/21 13:36 10/31/21 14:00 Temperature 36.6 C Temperature Source Oral Pulse Rate 91 H 90 79 Pulse Rate from SpO2 Sensor 90 Pulse Rhythm Regular Pulse Strength Normal Respiratory Rate 19 18 19 Respiratory Effort / Characteristics Non-Labored Spontaneous Respiratory Depth Normal Respiratory Pattern Regular Blood Pressure 210/111 H 192/73 H Blood Pressure Mean 144 112 Blood Pressure Position Sitting Pulse Oximetry 98 98 Oxygen Delivery Method Room Air Room Air Sepsis Recent Fever Within 48 Hours No Sepsis New/Unexplained Change in Mental Status N/A Sepsis Action Taken by Nursing No Action Required 10/31/21 14:18 10/31/21 14:19 10/31/21 14:30 Temperature Temperature Source Pulse Rate 93 H Pulse Rate from SpO2 Sensor 89 Pulse Rhythm Pulse Strength Respiratory Rate 19 Respiratory Effort / Characteristics Respiratory Depth Respiratory Pattern Blood Pressure Blood Pressure Mean Blood Pressure Position Pulse Oximetry 98 Oxygen Delivery Method Room Air Room Air Room Air Sepsis Recent Fever Within 48 Hours Sepsis New/Unexplained Change in Mental Status Sepsis Action Taken by Nursing 10/31/21 14:31 10/31/21 15:00 10/31/21 15:30 Temperature Temperature Source Pulse Rate 86 95 H 71 Pulse Rate from SpO2 Sensor 86 87 71 Pulse Rhythm Pulse Strength Respiratory Rate 15 15 16 Respiratory Effort / Characteristics Respiratory Depth Respiratory Pattern Blood Pressure 226/90 H 195/85 H 185/67 H Blood Pressure Mean 135 121 106 Blood Pressure Position Pulse Oximetry 97 98 96 Oxygen Delivery Method Room Air Room Air Room Air Sepsis Recent Fever Within 48 Hours Sepsis New/Unexplained Change in Mental Status Sepsis Action Taken by Nursing 10/31/21 16:00 Temperature Temperature Source Pulse Rate 73 Pulse Rate from SpO2 Sensor 74 Pulse Rhythm Pulse Strength Respiratory Rate 15 Respiratory Effort / Characteristics Respiratory Depth Respiratory Pattern Blood Pressure 171/61 H Blood Pressure Mean 97 Blood Pressure Position Pulse Oximetry 97 Oxygen Delivery Method Sepsis Recent Fever Within 48 Hours Sepsis New/Unexplained Change in Mental Status Sepsis Action Taken by Nursing Laboratory Data Result diagrams: 10/31/21 14:09 10/31/21 14:09 Lab Results 10/31/21 10/31/21 10/31/21 Range/Units 14:09 14:09 15:05 WBC 7.27 (4.8-10.8) K/ul RBC 4.55 (3.93-5.22) M/uL Hgb 13.5 (12.0-16.0) g/dl Hct 40.0 (34.1-44.9) % MCV 87.9 (80.0-100.0) fL MCH 29.7 (25.0-34.0) pg MCHC 33.8 (32.0-36.0) g/dL RDW Std Deviation 43.1 (36.4-46.3) fL RDW Coeff of Kaila 13.2 (11.5-14.5) % Plt Count 284 (130-400) K/uL MPV 10.3 (9.4-12.3) fL Immature Gran % (Auto) 0.3 % Neut % (Auto) 70.3 % Lymph % (Auto) 17.2 % Toole % (Auto) 9.2 % Eos % (Auto) 2.2 % Baso % (Auto) 0.8 % Neut # (Auto) 5.11 (1.4-6.5) K/uL Lymph # (Auto) 1.25 (1.2-3.4) K/uL Toole # (Auto) 0.67 (0.24-0.82) K/uL Eos # (Auto) 0.16 (0-0.50) K/uL Baso # (Auto) 0.06 (0-0.2) K/uL Immature Gran # (Auto) 0.02 (0.00-0.02) K/uL Sodium 134 L (136-145) mmol/L Potassium 4.0 (3.5-5.1) mmol/L Chloride 100 (98-107) mmol/L Carbon Dioxide 24 (21-32) mmol/L Anion Gap 10 (3-11) BUN 26 H (6-23) mg/dl Creatinine 1.35 H (0.6-1.2) mg/dl Est Cr Clr Drug Dosing 26.4 ml/min Est GFR ( Amer) 40.8 ml/min Est GFR (Non-Af Amer) 35.2 ml/min BUN/Creatinine Ratio 19.3 (10-20) Glucose 109 H (70-99(Fasting)) mg/dl Calcium 9.0 (8.5-10.1) mg/dl Total Bilirubin 0.5 (0.2-1.0) mg/dl AST 23 (13-39) U/L ALT 22 (7-52) U/L Alkaline Phosphatase 71 (34-104) U/L Troponin I High Sens 25.4 H (0-14) pg/ml Total Protein 7.7 (6.0-8.3) gm/dl Albumin 4.4 (3.4-5.0) gm/dl Globulin 3.3 (2.5-4.0) gm/dl Albumin/Globulin Ratio 1.3 (0.9-2) Lipase 68 (11-82) U/L SARS-CoV-2, RNA, NAAT NEGATIVE (NEGATIVE) Administered Medications Discontinued Medications Labetalol HCl (Labetalol Hcl Iv 5 Mg/Ml 20ml) 10 mg IV NOW STA Stop: 10/31/21 14:48 Last Admin: 10/31/21 15:01 Dose: 10 mg Documented by: [id number] Cosigned by: [id number] Imaging Data Radiologist's Impression: Chest X-Ray 10/31/21 13:40 XR chest 1V portable CLINICAL HISTORY: Chest Pain. COMPARISON STUDY: 10/29/2021 TECHNIQUE: 1 view of the chest FINDINGS: Single frontal view of the chest demonstrates the cardiomediastinal silhouette to be within normal limits. The lungs are clear of alveolar opacities. There is no evidence for pleural effusion. There is no evidence for vascular congestion. There is no acute osseous pathology. IMPRESSION: 1. No acute cardiopulmonary disease. There is no significant interval change. ACT 112: Negative or not required by law. Electronically signed by: Subhash Bonilla M.D. 10/31/2021 2:22 PM Discharge Plan Visit Data Chief Complaint: Syncope ED Provider: Fran Mendoza Discharge Problem: Hypertension, Syncope, TIA (transient ischemic attack) Forms Stand Alone Forms: [facility] Prescriptions Prescriptions: No Action multivitamin Tablet 1 tab PO DAILY RF: 0 cyanocobalamin (vitamin B-12) [Vitamin B-12] 100 mcg Tablet 0 mcg PO DAILY RF: 0 acetaminophen [Tylenol Extra Strength] 500 mg Tablet 1,000 mg PO Q6H PRN (Reason: Pain) RF: 0 vitamin B complex Tablet 1 tab PO DAILY RF: 0 cholecalciferol (vitamin D3) [Vitamin D3] 25 mcg (1,000 unit) Tablet 0 mcg PO DAILY RF: 0 magnesium oxide 400 mg magnesium Tablet 0 mg PO DAILY RF: 0 Beet Root 1 tab PO DAILY RF: 0 atorvastatin 40 mg Tablet 40 mg PO QAM 90 Days Qty: 90 RF: 0 clopidogrel 75 mg Tablet 75 mg PO QAM 21 Days Qty: 21 RF: 0 amlodipine [Norvasc] 5 mg Tablet 10 mg PO QAM 90 Days Qty: 180 RF: 0 aspirin 81 mg Tablet,Delayed Release (Dr/Ec) 81 mg PO QAM 90 Days Qty: 90 RF: 0 hydrochlorothiazide 25 mg Tablet 25 mg PO QAM 90 Days Qty: 90 RF: 0 Referrals Referrals: PCP,NO [Primary Care Provider] -
[2021-10-31] MEDS: ACETAMINOPHEN 500 MG TAB PO PRN (21:37)
[2021-11-01] MEDS: ACETAMINOPHEN 500 MG TAB PO PRN ×2 (02:57→10:43)
--- NOTE | 2021-11-01 08:43 | Ultrasound Report ---
US duplex renal artery CLINICAL HISTORY: Uncontrolled hypertension. COMPARISON STUDY: None. FINDINGS: The right kidney measures 8.1 cm and the left kidney measures 9.1 cm. There is cortical thi nning with increased echogenicity bilaterally. The bilateral renal veins are patent. Peak systolic ve locity within the aorta is 82 cm/s. Peak systolic velocity within the proximal right renal artery is 351 cm/s consistent with an area of stenosis. Peak systolic velocity within the proximal to mid left renal artery is 187 cm/s. IMPRESSION: 1. Elevated peak systolic velocity within the proximal right renal artery of 351 cm/s consistent with an area of stenosis. 2. Borderline stenosis within the proximal to mid left renal artery. 3. Atrophic/echogenic bilateral kidneys suggestive of medical renal disease. ACT 112: Negative or not required by law. Electronically signed by: Mike Roman M.D. 11/01/2021 8:42 AM
[2021-11-01] MEDS: VITAMIN B COMPLEX TAB PO SCH (08:59)
[2021-11-01] MEDS: amLODIPine BESYLATE 5 MG TAB PO SCH (08:59)
[2021-11-01] MEDS: ATORVASTATIN 40 MG TAB PO SCH (08:59)
[2021-11-01] MEDS: CLOPIDOGREL BISULFATE 75 MG TAB PO SCH (08:59)
[2021-11-01] MEDS: ASPIRIN 81 MG ECTAB PO SCH (08:59)
[2021-11-01] MEDS: hydroCHLOROthiazide 25 MG TAB PO SCH (09:00)
[2021-11-01 10:44] LABS: Appearance Urine Cloudy (Clear); Bacteria Urine Automated 4+ (Negative); Bilirubin Urine Negative (Negative); Blood Urine 1+ (Negative); Cast Urine Automated 0 /lpf (0-5); Color Urine Yellow; Epithelial Cell Urine Auto 0-5 /lpf (0-5); Glucose Urine UA Negative (Negative); Ketones Urine Negative (Negative); Leukocyte Esterase Urine 3+ (Negative); Nitrite Urine Negative (Negative); Protein Urine 1+ (Negative); RBC Urine Automated 0-4 /hpf (0-4); Specific Gravity Urine 1.013 (1.000-1.030); Urobilinogen Urine Negative (Negative); WBC Urine Automated >30 /hpf (0-5)
--- NOTE | 2021-11-01 11:54 | Consultation ---
Date of Consultation November 01, 2021 Assessment & Plan (1) Carotid stenosis: Pt with severe R ICA stenosis of 90% and recent R hemispheric TIA. R CEA is recommended. Long discussion with pt re: R CEA procedure, risks, benefits, alternatives. Also advised pt of 30% risk of CVA over the next few weeks without surgery. She states understanding and that she does not wish to pursue surgery at this time. States she will discuss with her son and call us if she changes her mind and wishes to proceed. Please call if needed. History of Present Illness Reason for Consultation: R ICA stenosis with tia Attending Physician: Amarjit Cohen MD History of Present Illness 85 yo f with hx of labile htn, CAD, and R retinal artery occlusion, admitted with hypertensive urgency, seen in consultation today for severe R ICA stenosis. Pt was admitted on 10/29 with sx of L facial numbness/coolness and drifting to the left when ambulating which started while at home quilting. Her sx resolved, but pt was noted to have hypertensive urgency. Her BP improved and she was discharged yesterday. She returned a few hrs later with hypertensive urgency again, SBP 230. She currently takes 2 antihypertensive medications at home. Pt states she has a section of vision loss in her R eye that has been present for 35 yrs, since her retinal artery occlusion. No new amaurosis. No confusion, difficulty speaking, or recurrence of her L sided sx. She lives indepedently and is very active. She quilts almost daily. Denies BRYAN, fever, recent illness, chest pain, SOB, abdpain, N/V, rest pain, claudication, other complaints. Pt states she has lived a very full life and does not wish to have surgery at this time. CTA neck from last admission demonstrates severe R ICA stenosis at the bulb. No CVA noted on MRI. Allergies Allergy/AdvReac Type Severity Reaction Status Date / Time onion AdvReac NAUSEA, Verified 10/31/21 15:09 HEADACHE ALLIUM AdvReac Intermediate NAUSEA/HEADACHE--ONIONS, Uncoded 10/31/21 15:09 GARLIC, SCALLIONS FAMILY Home Medications Medication Instructions Recorded Confirmed Type Beet Root 1 tab PO DAILY 10/29/21 10/31/21 History acetaminophen 500 mg tablet 1,000 mg PO Q6H PRN 10/29/21 10/31/21 History (Tylenol Extra Strength) cholecalciferol (vitamin D3) 25 0 mcg PO DAILY 10/29/21 10/31/21 History mcg (1,000 unit) tablet (Vitamin D3) cyanocobalamin (vitamin B-12) 100 0 mcg PO DAILY 10/29/21 10/31/21 History mcg tablet (Vitamin B-12) magnesium oxide 0 mg PO DAILY 10/29/21 10/31/21 History multivitamin 1 tab PO DAILY 10/29/21 10/31/21 History vitamin B complex 1 tab PO DAILY 10/29/21 10/31/21 History amlodipine 5 mg tablet (Norvasc) 10 mg PO QAM 90 Days #180 tab 10/31/21 10/31/21 Rx aspirin 81 mg tablet,delayed 81 mg PO QAM 90 Days #90 tab 10/31/21 10/31/21 Rx release atorvastatin 40 mg tablet 40 mg PO QAM 90 Days #90 tab 10/31/21 10/31/21 Rx clopidogrel 75 mg tablet 75 mg PO QAM 21 Days #21 tab 10/31/21 10/31/21 Rx hydrochlorothiazide 25 mg tablet 25 mg PO QAM 90 Days #90 tab 10/31/21 10/31/21 Rx Patient History Medical History CVA (cerebral vascular accident) seen on 10/28/[address] Hypertension Surgical History No significant past surgical history Family History Other Family history non-contributory Social History Smoking Status: Never smoker Hx Alcohol Use: Yes Hx Substance Use: No Preferred Language: Kittitian Communication Ability: Effective 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 Beliefs That Will Affect Care: None marital status: / Current Living Situation: Alone Feels Safe at Home: Yes Safety Concerns: Feels Safe At This Time Assistive Devices: Walker Review of Systems Review of Systems: All systems reviewed & are unremarkable except as noted in HPI & below Physical Exam Constitutional: WD/WN, vitals as above healthy appearing, cooperative and comfortable; not in distress ENMT: Ears: no hearing impairment Neck: trachea midline Respiratory: normal respiratory effort; no respiratory distress Auscultation: lungs clear to auscultation bilaterally and + diminished lung sounds Cardiovascular: Rate/Rhythm: regular rate and regular rhythm Vessels: + carotid bruit, femoral pulses present, posterior tibial pulses present, dorsalis pedis pulses present and radial pulses present; + abnormal peripheral pulses Extremities: normal capillary refill; no edema Gastrointestinal (Abdomen): Inspection/Auscultation: abdomen normal to inspection and normal bowel sounds Percussion/Palpation: abdomen soft; abdomen nontender Musculoskeletal: no cyanosis or clubbing, extremities motor strength 5/5 Skin: no rashes, warm and dry Neurologic: moves all extremities and awake; no focal motor deficits and not confused Psychiatric: A+Ox3, euthymic affect Results & Data ([facility]) Vital Signs (Past 12 Hours) Vital Signs Temp Pulse Resp BP Pulse Ox 11/01/21 07:29 36.4 C L 77 16 142/77 H 96 11/01/21 02:45 36.6 C 66 18 170/74 H 97
--- NOTE | 2021-11-01 12:29 | Cardiology Consultation ---
Date of Consultation November 01, 2021 Assessment & Plan (1) Fall: (2) Mitral regurgitation: 1. Fall: I think this is a good description of yesterday's event. I would not report this as syncope as it did not appear to be any loss of consciousness. The event itself seems very similar to other episodes she has had over the past week. It involves some imbalance in the sense that she was going to fall. This was associated with some visual changes. Her cardiovascular evaluation to date has been quite reassuring. Her EKG is normal. No arrhythmias on telemetry. No sense of palpitation leading up to these events. Echocardiogram previously demonstrated preserved LV systolic function without significant valvular heart disease. I do not think I would recommend any additional cardiovascular testing currently. Her blood pressure is being addressed. Symptoms could be neurologic and a discussion has been undertaken with regard to her carotid stenosis. 2. Mitral regurgitation: Mild to moderate. This can be followed over time. Not likely be a significant concern in the course of her lifetime. History of Present Illness Reason for Consultation: Fall, dizziness Requesting Physician: Noel Attending Physician: Amarjit Cohen MD History of Present Illness The patient is an 85-year-old woman without a known history of cardiac disease who was recently discharged from the hospital after evaluation for gait instability and hypertension. She had previously had a history of high blood pressure in been on hydrochlorothiazide. She was notably hypertensive at the last admission in also started on amlodipine. The patient states that she was picking up her prescriptions at a department store yesterday when she became somewhat lightheaded. She stated that she was holding onto a shopping cart and noticed some flashing lights. She then started leaning towards the side and fell over with the cart. She was quite adamant that she did not lose consciousness. She did not have any associated palpitations. She states that a nurse was present on the scene and took her blood pressure. She states that this systolic blood pressure was in the 150s. Afterwards she felt well but her son insisted on an evaluation in the emergency room. She was subsequently found to be hypertensive in admitted for observation. She states that the episode yesterday was very similar to 1 that she suffered in the hospital. Again, she fell in the bathroom. She had a sense that she was going to fall but did not lose consciousness. She was concerned that she had been bed-bound for several days very little leading up to this event. She did not report other symptoms leading up to the event. Currently feeling well. She is generally an active individual. She has not report significant limitations with activity. She has some mild dyspnea at times. No exertional chest pain. She does have some fleeting palpitations that are fairly frequent. However, these are longstanding in nature. They last for few minutes and resolved. The did not appear to be associated with other symptoms. Allergies Allergy/AdvReac Type Severity Reaction Status Date / Time onion AdvReac NAUSEA, Verified 10/31/21 15:09 HEADACHE ALLIUM AdvReac Intermediate NAUSEA/HEADACHE--ONIONS, Uncoded 10/31/21 15:09 GARLIC, SCALLIONS FAMILY Home Medications Medication Instructions Recorded Confirmed Type Beet Root 1 tab PO DAILY 10/29/21 10/31/21 History acetaminophen 500 mg tablet 1,000 mg PO Q6H PRN 10/29/21 10/31/21 History (Tylenol Extra Strength) cholecalciferol (vitamin D3) 25 0 mcg PO DAILY 10/29/21 10/31/21 History mcg (1,000 unit) tablet (Vitamin D3) cyanocobalamin (vitamin B-12) 100 0 mcg PO DAILY 10/29/21 10/31/21 History mcg tablet (Vitamin B-12) magnesium oxide 0 mg PO DAILY 10/29/21 10/31/21 History multivitamin 1 tab PO DAILY 10/29/21 10/31/21 History vitamin B complex 1 tab PO DAILY 10/29/21 10/31/21 History amlodipine 5 mg tablet (Norvasc) 10 mg PO QAM 90 Days #180 tab 10/31/21 10/31/21 Rx aspirin 81 mg tablet,delayed 81 mg PO QAM 90 Days #90 tab 10/31/21 10/31/21 Rx release atorvastatin 40 mg tablet 40 mg PO QAM 90 Days #90 tab 10/31/21 10/31/21 Rx clopidogrel 75 mg tablet 75 mg PO QAM 21 Days #21 tab 10/31/21 10/31/21 Rx hydrochlorothiazide 25 mg tablet 25 mg PO QAM 90 Days #90 tab 10/31/21 10/31/21 Rx Patient History Medical History CVA (cerebral vascular accident) seen on 10/28/[address] Hypertension Surgical History No significant past surgical history Family History Other Family history non-contributory Social History Smoking Status: Never smoker Hx Alcohol Use: Yes Hx Substance Use: No Preferred Language: Citizen Of [place] Communication Ability: Effective Hostess Host Required: No Beliefs That Will Affect Care: None marital status: / Current Living Situation: Alone Feels Safe at Home: Yes Safety Concerns: Feels Safe At This Time Assistive Devices: Walker Review of Systems Review of Systems: Per HPI Physical Exam Physical Exam: She is alert and oriented x3. Mood affect appear normal. She answered all questions appropriately. HEENT: Sclerae are anicteric. Pupils are equal and reactive to light and accommodation. Extraocular movements were intact. Neuro: Cranial nerves intact Lungs: Lungs are clear to auscultation bilaterally. There are no rales wheezes or rhonchi. She has normal respiratory effort without use of accessory muscles. There is normal pulmonary excursion. Cardiac: The rhythm was regular. S1 and S2 were normal. Crescendo systolic murmur. The PMI was not markedly displaced on palpation. Extremities: Patient has bilateral radial pulses that are equal in intensity. There is no evidence cyanosis or clubbing. There was no evidence of significant peripheral edema bilaterally. Skin: There are no rashes noted on examination today. Results & Data ([facility]) Vital Signs (Past 12 Hours) Vital Signs Temp Pulse Resp BP Pulse Ox 11/01/21 11:43 36.7 C 86 18 162/70 H 97 11/01/21 07:29 36.4 C L 77 16 142/77 H 96 11/01/21 02:45 36.6 C 66 18 170/74 H 97 Laboratory Results Abnormal Lab Results 10/31/21 10/31/21 10/31/21 14:09 14:09 15:05 WBC 7.27 RBC 4.55 Hgb 13.5 Hct 40.0 MCV 87.9 MCH 29.7 MCHC 33.8 RDW Std Deviation 43.1 RDW Coeff of Kaila 13.2 Plt Count 284 MPV 10.3 Immature Gran % (Auto) 0.3 Neut % (Auto) 70.3 Lymph % (Auto) 17.2 [place] % (Auto) 9.2 Eos % (Auto) 2.2 Baso % (Auto) 0.8 Neut # (Auto) 5.11 Lymph # (Auto) 1.25 [place] # (Auto) 0.67 Eos # (Auto) 0.16 Baso # (Auto) 0.06 Immature Gran # (Auto) 0.02 Sodium 134 L Potassium 4.0 Chloride 100 Carbon Dioxide 24 Anion Gap 10 BUN 26 H Creatinine 1.35 H Est Cr Clr Drug Dosing 26.4 Est GFR ( Amer) 40.8 Est GFR (Non-Af Amer) 35.2 BUN/Creatinine Ratio 19.3 Glucose 109 H Calcium 9.0 Total Bilirubin 0.5 AST 23 ALT 22 Alkaline Phosphatase 71 Troponin I High Sens 25.4 H Total Protein 7.7 Albumin 4.4 Globulin 3.3 Albumin/Globulin Ratio 1.3 Lipase 68 Urine Color Urine Appearance Urine pH Ur Specific Nak[place] Urine Protein Urine Glucose (UA) Urine Ketones Urine Blood Urine Nitrite Urine Bilirubin Urine Urobilinogen Ur Leukocyte Esterase Urine WBC (Auto) Urine RBC (Auto) U Hyaline Cast (Auto) U Epithel Cells (Auto) Urine Bacteria (Auto) SARS-CoV-2, RNA, NAAT NEGATIVE 11/01/21 10:34 WBC RBC Hgb Hct MCV MCH MCHC RDW Std Deviation RDW Coeff of Kaila Plt Count MPV Immature Gran % (Auto) Neut % (Auto) Lymph % (Auto) [place] % (Auto) Eos % (Auto) Baso % (Auto) Neut # (Auto) Lymph # (Auto) [place] # (Auto) Eos # (Auto) Baso # (Auto) Immature Gran # (Auto) Sodium Potassium Chloride Carbon Dioxide Anion Gap BUN Creatinine Est Cr Clr Drug Dosing Est GFR ( Amer) Est GFR (Non-Af Amer) BUN/Creatinine Ratio Glucose Calcium Total Bilirubin AST ALT Alkaline Phosphatase Troponin I High Sens Total Protein Albumin Globulin Albumin/Globulin Ratio Lipase Urine Color Yellow Urine Appearance Cloudy A Urine pH 7.0 Ur Specific Nakina 1.013 Urine Protein 1+ H Urine Glucose (UA) Negative Urine Ketones Negative Urine Blood 1+ H Urine Nitrite Negative Urine Bilirubin Negative Urine Urobilinogen Negative Ur Leukocyte Esterase 3+ H Urine WBC (Auto) >30 H Urine RBC (Auto) 0-4 U Hyaline Cast (Auto) 0 U Epithel Cells (Auto) 0-5 Urine Bacteria (Auto) 4+ H SARS-CoV-2, RNA, NAAT Diagnostic Findings Echocardiogram obtained 10/30/2021: Normal LV systolic function. Mild LVH. Mild aortic valve sclerosis without stenosis. Mild to moderate mitral regurgitation. A chest x-ray was obtained the time admission which did not reveal any acute cardiopulmonary process ECG Additional Comments: EKG obtained the time admission revealed normal sinus rhythm. Normal EKG. PG Care Time/CCT Total # of Minutes Spent Total Time Spent with Patient: Total time spent is greater than 50% in coordination of care (as documented) at patient's floor/unit and/or counseling patient: Coding Level of Care Code INT OBSERVATION CARE 70M LVL 3 Diagnoses Fall W19.XXXA Mitral regurgitation I34.0
[2021-11-01] MEDS ORDERED: DEXTROSE 5% IV SCH (14:45)
[2021-11-01] MEDS ORDERED: CEFTRIAXONE SODIUM IV SCH (14:45)
--- NOTE | 2021-11-01 14:47 | Hospitalist Progress Note ---
Date of Service November 01, 2021 Assessment & Plan (1) Hypertensive urgency: Plan: Shortly after she was discharged, Patient presents with an Initial BP 220/90 so was given 10 mg IV labetalol and subsequent 5 mg IV labetalol for persistent severe hypertension. BP now under better control Continue HCTZ and Amlodipine, may add clonidine (2) Syncope: Plan: Patient said she fell, may not have been syncopal, could be due to carotid artery stenosis 2 D ECHO did not show any structural heart abnormality Has been evaluated by Cardiology, no more work up warranted (3) Carotid stenosis: Plan: Significant right carotid seen on CTA However, patient said she doesnt want further investigations/work up because she has a good life now and would not want to be going in and out of doctors office vascular surgery has evaluated and recommends endaterectomy, however, patient declined Continue Plavix and ASA and Atorvastatin (4) TIA (transient ischemic attack): Plan: Could be due to carotid stenosis - 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 - CT of head, CTA of head and neck findings as above. - Assessed by Neurology, appreciate recs - Consult vascular surgery for multiple areas of carotid/vertebral stenosis. - Telemetry for 24 hours, evaluate for episodes of atrial fibrillation. (5) UTI (urinary tract infection): Plan: Patient complained of burning urination urinalysis showed evidence of UTI will start on Iv ceftriaxone await cultures Plan: - [facility] and Anticipated Discharge Date Admission Date: October 31, 2021 Subjective patient seen and examined, complains of burning urination Review of Systems Review of Systems: All systems reviewed are negative, apart from the ones contained in the history. Physical Exam Physical Exam: The patient is awake, alert and oriented 3, well developed and well nourished, normocephalic and atraumatic, lying in bed and in no acute distress. HEENT--PERRL, EOMI, mucous membranes and oropharynx mildly dry Neck--supple. No JVD. No bruits. Thyroid normal, trachea midline, no adenopathy. Heart--normal S1 and S2. No murmurs, rubs or gallops. Lungs--clear bilaterally, no respiratory distress, no accessory muscle use. Abdomen--normal bowel sounds and soft. Mild epigastric and left sided abdominal pain Extremities--no cyanosis or clubbing. No edema. Dermatologic--normal skin turgor, normal color, no abnormal lymph nodes, no rash. Neurologic--cranial nerves II through XII grossly intact. Rheumatologic--normal range of motion. Psychiatric--normal affect. Results & Data Results & Data ([facility]) Vital Signs (Past 12 Hours) Vital Signs Temp Pulse Resp BP Pulse Ox 11/01/21 11:43 98.1 F 86 18 162/70 H 97 11/01/21 07:29 97.5 F L 77 16 142/77 H 96 11/01/21 02:45 97.9 F 66 18 170/74 H 97 PG Care Time/CCT Total # of Minutes Spent Total Time Spent with Patient: Total time spent is greater than 50% in coordination of care (as documented) at patient's floor/unit and/or counseling patient: Coding Level of Care Code 95022 Subseq Hosp Care Lvl 2 Diagnoses Hypertensive urgency I16.0 Syncope R55 Syncope type: unspecified Carotid stenosis I65.29 TIA (transient ischemic attack) G45.9 UTI (urinary tract infection) N39.0 Time Spent (min) 35 (1) Syncope Syncope type: unspecified Qualified Code(s): R55 - Syncope and collapse
[2021-11-01] MEDS: cefTRIAXone SODIUM 1,000 MG in DEXTROSE 5% 50 ML IV SCH (15:44)
[2021-11-01] MEDS ORDERED: cloNIDine HCL 0.1 MG TAB PO ONE (16:02)
[2021-11-01] MEDS: hydrALAZINE HCL 20 MG/ML VIAL IV PRN (16:37)
[2021-11-01] MEDS ORDERED: MELATONIN 3 MG TAB PO PRN (23:29)
[2021-11-02] MEDS: ASPIRIN 81 MG ECTAB PO SCH (08:06)
[2021-11-02] MEDS: ATORVASTATIN 40 MG TAB PO SCH (08:07)
[2021-11-02] MEDS: VITAMIN B COMPLEX TAB PO SCH (08:07)
[2021-11-02] MEDS: CLOPIDOGREL BISULFATE 75 MG TAB PO SCH (08:07)
[2021-11-02] MEDS: amLODIPine BESYLATE 5 MG TAB PO SCH (08:07)
[2021-11-02] MEDS: hydroCHLOROthiazide 25 MG TAB PO SCH (08:07)
[2021-11-02] MEDS: cloNIDine HCL 0.1 MG TAB PO SCH (08:47)
--- NOTE | 2021-11-02 11:14 | Electrocardiogram Report ---
Test Reason : Blood Pressure : / mmHG Vent. Rate : 085 BPM Atrial Rate : 085 BPM P-R Int : 148 ms QRS Dur : 066 ms QT Int : 384 ms P-R-T Axes : 063 027 061 degrees QTc Int : 456 ms Normal sinus rhythm Normal ECG When compared with ECG of 31-OCT-2021 13:34, No significant change was found Confirmed by Eleazar Espinosa ([id number]) on 11/02/2021 11:14:00 AM Referred By: REFERRED SELF Confirmed By:Richard Espinosa
--- NOTE | 2021-11-02 15:08 | Hospitalist Progress Note ---
Date of Service November 02, 2021 Assessment & Plan (1) Hypertensive urgency: Plan: BP is now under better control Continue HCTZ and Amlodipine abd Clonidine (2) Syncope: Plan: Patient said she fell, may not have been syncopal, could be due to carotid artery stenosis 2 D ECHO did not show any structural heart abnormality Has been evaluated by Cardiology, no more work up warranted (3) Carotid stenosis: Plan: Significant right carotid seen on CTA Patient now amenable to carotid endaterectomy after initially refusing to consider it Vascular surgery on consult Continue Plavix and ASA and Atorvastatin (4) TIA (transient ischemic attack): Plan: Could be due to carotid stenosis - 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 - CT of head, CTA of head and neck findings as above. - Assessed by Neurology, appreciate recs - Telemetry (5) UTI (urinary tract infection): Plan: Patient complained of burning urination urinalysis showed evidence of UTI will start on Iv ceftriaxone await cultures Plan - Admit to PCU. - SCDs Admission and Anticipated Discharge Date Admission Date: October 31, 2021 Subjective patient seen and examined, no new complaints today Review of Systems Review of Systems: All systems reviewed are negative, apart from the ones contained in the history. Physical Exam Physical Exam: The patient is awake, alert and oriented 3, well developed and well nourished, normocephalic and atraumatic, lying in bed and in no acute distress. HEENT--PERRL, EOMI, mucous membranes and oropharynx mildly dry Neck--supple. No JVD. No bruits. Thyroid normal, trachea midline, no adenopathy. Heart--normal S1 and S2. No murmurs, rubs or gallops. Lungs--clear bilaterally, no respiratory distress, no accessory muscle use. Abdomen--normal bowel sounds and soft. Mild epigastric and left sided abdominal pain Extremities--no cyanosis or clubbing. No edema. Dermatologic--normal skin turgor, normal color, no abnormal lymph nodes, no rash. Neurologic--cranial nerves II through XII grossly intact. Rheumatologic--normal range of motion. Psychiatric--normal affect. Results & Data Results & Data ([facility]) Vital Signs (Past 12 Hours) Vital Signs Temp Pulse Resp BP Pulse Ox O2 Del Method 11/02/21 12:15 97.7 F 85 18 152/69 H 90 Room Air 11/02/21 07:22 97.9 F 75 18 167/69 H 97 Room Air PG Care Time/CCT Total # of Minutes Spent Total Time Spent with Patient: Total time spent is greater than 50% in coordination of care (as documented) at patient's floor/unit and/or counseling patient: Coding Level of Care Code 10268 Subseq Hosp Care Lvl 2 Diagnoses Hypertensive urgency I16.0 Syncope R55 Syncope type: unspecified Carotid stenosis I65.29 TIA (transient ischemic attack) G45.9 UTI (urinary tract infection) N39.0 Time Spent (min) 35 (1) Syncope Syncope type: unspecified Qualified Code(s): R55 - Syncope and collapse
[2021-11-02] MEDS: cefTRIAXone SODIUM 1,000 MG in DEXTROSE 5% 50 ML IV SCH (15:26)
[2021-11-02] MEDS: ACETAMINOPHEN 500 MG TAB PO PRN (15:27)
[2021-11-03] MEDS: ACETAMINOPHEN 500 MG TAB PO PRN ×2 (08:12→14:46)
[2021-11-03] MEDS: amLODIPine BESYLATE 5 MG TAB PO SCH (08:13)
[2021-11-03] MEDS: hydroCHLOROthiazide 25 MG TAB PO SCH (08:13)
[2021-11-03] MEDS: ASPIRIN 81 MG ECTAB PO SCH (08:13)
[2021-11-03] MEDS: cloNIDine HCL 0.1 MG TAB PO SCH (08:14)
[2021-11-03] MEDS: VITAMIN B COMPLEX TAB PO SCH (08:14)
[2021-11-03] MEDS: CLOPIDOGREL BISULFATE 75 MG TAB PO SCH (08:14)
[2021-11-03] MEDS: ATORVASTATIN 40 MG TAB PO SCH (08:14)
--- NOTE | 2021-11-03 12:41 | Surgery Progress Note ---
Date of Service November 03, 2021 Assessment & Plan (1) Carotid stenosis, symptomatic w/o infarct: Plan: Patient for right CEA tomorrow. Will hold heparin at noon tomorrow. I have discussed the risks options and benefits of the procedure with the patient. The patient understands the risks options and benefits and agrees to the procedure. Admission and Anticipated Discharge Date Admission Date: October 31, 2021 Subjective No recurrence of symptoms. Physical Exam Constitutional: WD/WN, vitals as above Neck: trachea midline Respiratory: normal respiratory effort; no respiratory distress Cardiovascular: RRR, no murmur, no edema Musculoskeletal: no cyanosis or clubbing, extremities motor strength 5/5 Neurologic: CN's II-XI intact bilaterally and moves all extremities Results & Data ([facility]) Vital Signs (Past 12 Hours) Vital Signs Temp Pulse Resp BP Pulse Ox O2 Del Method 11/03/21 12:16 36.5 C 67 18 144/73 H 95 Room Air 11/03/21 08:03 36.6 C 80 18 167/68 H 97 Room Air 11/03/21 04:11 36.3 C L 69 18 143/61 H 97 Room Air
--- NOTE | 2021-11-03 13:07 | Hospitalist Progress Note ---
Date of Service November 03, 2021 Assessment & Plan (1) Hypertensive urgency: Plan: BP is now under better control Continue HCTZ and Amlodipine abd Clonidine (2) Carotid stenosis: Plan: Significant right carotid seen on CTA Patient now amenable to carotid endaterectomy after initially refusing to consider it Vascular surgery on consult Continue Plavix and ASA and Atorvastatin Plan is for Endaterectomy tomorrow (3) Syncope: Plan: No new syncopal episoded in the hospital 2 D ECHO did not show any structural heart abnormality Has been evaluated by Cardiology, no more work up warranted (4) TIA (transient ischemic attack): Plan: Could be due to carotid stenosis - 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 - CT of head, CTA of head and neck findings as above. - Assessed by Neurology, appreciate recs - Telemetry (5) UTI (urinary tract infection): Plan: Patient complained of burning urination urinalysis showed evidence of UTI will start on Iv ceftriaxone await cultures Plan - Admit to PCU. - SCDs Admission and Anticipated Discharge Date Admission Date: October 31, 2021 Subjective patient seen and examined, no new complaints Review of Systems Review of Systems: All systems reviewed are negative, apart from the ones contained in the history. Physical Exam Physical Exam: The patient is awake, alert and oriented 3, well developed and well nourished, normocephalic and atraumatic, lying in bed and in no acute distress. HEENT--PERRL, EOMI, mucous membranes and oropharynx mildly dry Neck--supple. No JVD. No bruits. Thyroid normal, trachea midline, no adenopa thy. Heart--normal S1 and S2. No murmurs, rubs or gallops. Lungs--clear bilaterally, no respiratory distress, no accessory muscle use. Abdomen--normal bowel sounds and soft. Mild epigastric and left sided abdominal pain Extremities--no cyanosis or clubbing. No edema. Dermatologic--normal skin turgor, normal color, no abnormal lymph nodes, no rash. Neurologic--cranial nerves II through XII grossly intact. Rheumatologic--normal range of motion. Psychiatric--normal affect. Results & Data Results & Data ([facility]) Vital Signs (Past 12 Hours) Vital Signs Temp Pulse Resp BP Pulse Ox O2 Del Method 11/03/21 12:16 97.7 F 67 18 144/73 H 95 Room Air 11/03/21 08:03 97.9 F 80 18 167/68 H 97 Room Air 11/03/21 04:11 97.3 F L 69 18 143/61 H 97 Room Air PG Care Time/CCT Total # of Minutes Spent Total Time Spent with Patient: Total time spent is greater than 50% in coordination of care (as documented) at patient's floor/unit and/or counseling patient: Coding Level of Care Code 33329 Subseq Hosp Care Lvl 2 Diagnoses Hypertensive urgency I16.0 Carotid stenosis I65.29 Syncope R55 Syncope type: unspecified TIA (transient ischemic attack) G45.9 UTI (urinary tract infection) N39.0 Time Spent (min) 35 (1) Syncope Syncope type: unspecified Qualified Code(s): R55 - Syncope and collapse
[2021-11-03] MEDS: cefTRIAXone SODIUM 1,000 MG in DEXTROSE 5% 50 ML IV SCH (15:24)
[2021-11-04] MEDS: CLOPIDOGREL BISULFATE 75 MG TAB PO SCH ×2 (07:29→08:44)
[2021-11-04] MEDS: ASPIRIN 81 MG ECTAB PO SCH ×2 (07:29→08:43)
[2021-11-04] MEDS: hydroCHLOROthiazide 25 MG TAB PO SCH (07:44)
[2021-11-04] MEDS: ATORVASTATIN 40 MG TAB PO SCH (07:44)
[2021-11-04] MEDS: cloNIDine HCL 0.1 MG TAB PO SCH (07:44)
[2021-11-04] MEDS: amLODIPine BESYLATE 5 MG TAB PO SCH (07:44)
[2021-11-04] MEDS: VITAMIN B COMPLEX TAB PO SCH (07:45)
--- NOTE | 2021-11-04 09:12 | History & Physical Bridge Note ---
Date of Service November 04, 2021 History & Physical Bridge Note Patient for a right CEA today. I have discussed the risks options and benefits of the procedure with the patient. The patient understands the risks options and benefits and agrees to the procedure. I have examined the patient, reviewed the History & Physical and in the interval since the performance of the History & Physical I have noted the following changes of clinical significance: no changes noted
--- NOTE | 2021-11-04 10:37 | Anesthesiology Consultation ---
Date of Service November 04, 2021 Assessment & Plan Chart Review Chart Review: Acceptable Risk for Surgery and Patient NOT seen in Pre Admission Testing Consults Requested none ASA ASA4 Proposed Anesthesia Anesthesia Type: General Anesthesia Line Insertion: Arterial line History Surgery Operation Date: 11/04/21 12:45 Proposed Procedures p Right Carotid Endarterectomy - Mack Reyes MD Height/Weight Height: 5 ft 5 in Weight: 65.4 kg Allergies Allergy/AdvReac Type Severity Reaction Status Date / Time garlic AdvReac Verified 11/01/21 13:13 onion AdvReac NAUSEA, Verified 11/01/21 13:13 HEADACHE Medications Home Medications Medication Instructions Recorded Confirmed Last Taken Beet Root 1 tab PO DAILY 10/29/21 10/31/21 10/31/21 acetaminophen 500 mg tablet 1,000 mg PO Q6H PRN Pain 10/29/21 10/31/21 Unknown (Tylenol Extra Strength) cholecalciferol (vitamin D3) 25 0 mcg PO DAILY 10/29/21 10/31/21 10/31/21 mcg (1,000 unit) tablet (Vitamin D3) cyanocobalamin (vitamin B-12) 100 0 mcg PO DAILY 10/29/21 10/31/21 10/31/21 mcg tablet (Vitamin B-12) magnesium oxide 0 mg PO DAILY 10/29/21 10/31/21 10/31/21 multivitamin 1 tab PO DAILY 10/29/21 10/31/21 10/31/21 vitamin B complex 1 tab PO DAILY 10/29/21 10/31/21 10/31/21 amlodipine 5 mg tablet (Norvasc) 10 mg PO QAM 90 days #180 tabs 10/31/2110/31/21 aspirin 81 mg tablet,delayed 81 mg PO QAM 90 days #90 tabs 10/31/21 10/31/21 10/31/21 release atorvastatin 40 mg tablet 40 mg PO QAM 90 days #90 tabs 10/31/21 10/31/21 10/31/21 clopidogrel 75 mg tablet 75 mg PO QAM 21 days #21 tabs 10/31/21 10/31/21 10/31/21 hydrochlorothiazide 25 mg tablet 25 mg PO QAM 90 days #90 tabs 10/31/21 10/31/21 10/31/21 Active Medications Generic Name Dose Route Start Last Admin Trade Name Freq PRN Reason Stop Dose Admin Acetaminophen 1,000 mg 10/31/21 16:48 11/03/21 14:46 Acetaminophen 500 Mg Tab PO 11/30/21 16:47 1,000 mg Q6H PRN Administration Pain Amlodipine Besylate 10 mg 11/01/21 09:00 11/04/21 07:44 Amlodipine Besylate 5 Mg Tab PO 12/01/21 08:59 10 mg QAM KIM Administration Aspirin 81 mg 11/01/21 09:00 11/04/21 08:43 Aspirin 81 Mg Ectab PO 12/01/21 08:59 81 mg QAM KIM Administration Atorvastatin Calcium 40 mg 11/01/21 09:00 11/04/21 07:44 Atorvastatin 40 Mg Tab PO 12/01/21 08:59 40 mg QAM KIM Administration Clonidine HCl 0.1 mg 11/02/21 09:00 11/04/21 07:44 Clonidine Hcl 0.1 Mg Tab PO 12/02/21 08:59 0.1 mg QAM KIM Administration Clopidogrel Bisulfate 75 mg 11/01/21 09:00 11/04/21 08:44 Clopidogrel Bisulfate 75 Mg Tab PO 12/01/21 08:59 75 mg QAM KIM Administration Hydralazine HCl 10 mg 10/31/21 16:48 11/01/21 16:37 Hydralazine Hcl 20 Mg/Ml Vial IV 11/30/21 16:47 10 mg PRN PRN Administration Blood Pressure - High Hydrochlorothiazide 25 mg 11/01/21 09:00 11/04/21 07:44 Hydrochlorothiazide 25 Mg Tab PO 12/01/21 08:59 25 mg QAM KIM Administration Ceftriaxone Sodium 1,000 mg/ 60 mls @ 120 mls/hr 11/01/21 15:00 11/03/21 15:57 Dextrose IV 11/06/21 14:59 Infused Q24H KIM Infusion Melatonin 6 mg 11/01/21 23:29 11/02/21 00:14 Melatonin 3 Mg Tab PO 12/01/21 23:28 6 mg HS PRN Administration Sleep Vitamin B Complex 1 tab 11/01/21 09:00 11/04/21 07:45 Vitamin B Complex Tab PO 12/01/21 08:59 1 tab DAILY KIM Administration Past Medical History Medical History CVA (cerebral vascular accident) seen on 10/28/[address] Hypertension HLD;ASCVD:PVD Exercise / Class Metabolic Activity III < 4 Walking/Shop/Light housework Past Family History Family History Other Family history non-contributory Past Surgical History Surgical History No significant past surgical history Past Anesthesia History No Hx of Anesthesia Complications and No Family Hx of Anesthesia Complications History of PONV No Hx of PONV and No Hx of Motion Sickness Social History Smoking Status: Never smoker Hx Alcohol Use: Yes alcohol intake frequency: holidays/special occasions only Hx Substance Use: No Physical Exam Vital Signs Last Vital Signs Temp 36.8 C 11/04/21 08:22 Pulse 68 11/04/21 08:22 Resp 18 11/04/21 08:22 BP 150/69 H 11/04/21 08:22 Pulse Ox 98 11/04/21 08:22 O2 Del Method 11/04/21 08:22 Testing Laboratory Results 10/31/21 14:09 10/31/21 14:09 Urine Color Yellow 11/01/21 10:34 Urine Appearance Cloudy (Clear) A 11/01/21 10:34 Urine pH 7.0 (4.5-7.5) 11/01/21 10:34 Ur Specific [place] 1.013 (1.000-1.030) 11/01/21 10:34 Urine Protein 1+ (Negative) H 11/01/21 10:34 Urine Glucose (UA) Negative (Negative) 11/01/21 10:34 Urine Ketones Negative (Negative) 11/01/21 10:34 Urine Nitrite Negative (Negative) 11/01/21 10:34 Ur Leukocyte Esterase 3+ (Negative) H 11/01/21 10:34 Urine WBC (Auto) >30 /hpf (0-5) H 11/01/21 10:34 Urine RBC (Auto) 0-4 /hpf (0-4) 11/01/21 10:34 U Hyaline Cast (Auto) 0 /lpf (0-5) 11/01/21 10:34 U Epithel Cells (Auto) 0-5 /lpf (0-5) 11/01/21 10:34 Urine Bacteria (Auto) 4+ (Negative) H 11/01/21 10:34 Blood Type A Positive 11/03/21 20:26 Antibody Screen NEGATIVE 11/03/21 20:26 11/01/21 10:34 Urine Culture - Final Urine,Clean Catch Proteus mirabilis Electrocardiogram Date: 11/01/21 Findings: + NSR @ (@ 85) Chest X-Ray Date: 10/31/21 Findings: + NAD Echocardiogram Date: 10/30/21 EF: 60% LV Function: normal RWMA: + none Other Findings: + LVH (mild) Valvular Disease: + MR (moderate) RV Sys. [id number] torr Other Testing 10/29/2021-Neck CTA-RCA-90% @ bulb;COLLETTE-70%;LCA-50%;Left vertebral artery completely occluded
[2021-11-04] MEDS ORDERED: ceFAZolin 1000MG 1,000 MG/7.5 ML SYR IV ONE (11:00)
[2021-11-04] MEDS ORDERED: EPINEPHrine INJ 1 MG/ML AMP ONE (11:29)
[2021-11-04] MEDS ORDERED: BUPIVACAINE 0.5 % 5 MG/1 ML MPF 30ML VIAL ONE (11:29)
[2021-11-04] MEDS ORDERED: GELATIN SPONGE SZ 100 ONE ×2 (11:29→13:37)
[2021-11-04] MEDS ORDERED: LIDOCAINE 1% LOCAL 20 ML VIAL ONE (11:29)
[2021-11-04] MEDS ORDERED: ceFAZolin 330 MG/ML 1 GM VIAL ONE (11:29)
[2021-11-04] MEDS ORDERED: HEPARIN (PORCINE) 1000 UNIT/ML 10 ML (CATH LAB USE ONLY) ONE (11:29)
[2021-11-04] MEDS ORDERED: THROMBIN FOR SOLN 20000 UNIT KIT ONE ×2 (11:30→13:40)
[2021-11-04] MEDS ORDERED: NEOSTIGMINE METHYLSULFATE 1 MG/ML 10ML VIAL ONE (11:35)
[2021-11-04] MEDS ORDERED: GLYCOPYRROLATE 0.2 MG/ML VIAL ONE (11:35)
[2021-11-04] MEDS ORDERED: LIDOCAINE 2% MPF LOCAL 5 ML VIAL INFIL ONE (11:35)
[2021-11-04] MEDS ORDERED: ONDANSETRON INJ 2 MG/ML 2 ML VIAL ONE (11:35)
[2021-11-04] MEDS ORDERED: ROCURONIUM BROMIDE 10 MG/ML 5 ML VIAL IV ONE (11:35)
[2021-11-04] MEDS ORDERED: PROPOFOL IV EMULSION 10 MG/ML 20 ML VIAL IV ONE (11:35)
[2021-11-04] MEDS ORDERED: DEXAMETHASONE SOD INJ 4 MG/ML VIAL ONE (11:35)
[2021-11-04] MEDS ORDERED: fentaNYL citrate 100 MCG/2 ML VIAL ONE (11:35)
--- NOTE | 2021-11-04 12:40 | Hospitalist Progress Note ---
Date of Service November 04, 2021 Assessment & Plan (1) Hypertensive urgency: Plan: BP is now under better control Continue HCTZ and Amlodipine and Clonidine (2) Carotid stenosis: Plan: Significant right carotid seen on CTA Patient now amenable to carotid endaterectomy after initially refusing to consider it Vascular surgery on consult Continue Plavix and ASA and Atorvastatin Plan is for Right Carotid Endarterectomy today (3) Syncope: Plan: No new syncopal episoded in the hospital 2 D ECHO did not show any structural heart abnormality Has been evaluated by Cardiology, no more work up warranted (4) TIA (transient ischemic attack): Plan: Could be due to carotid stenosis - 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 - CT of head, CTA of head and neck findings as above. - Assessed by Neurology, appreciate recs - Telemetry (5) UTI (urinary tract infection): Plan: Patient complained of burning urination urinalysis showed evidence of UTI One more day of IV Ceftriaxone Plan - Admit to PCU. - SCDs Admission and Anticipated Discharge Date Admission Date: October 31, 2021 Subjective patient seen and examined, no new complaints, for CEA today Review of Systems Review of Systems: All systems reviewed are negative, apart from the ones contained in the history. Physical Exam Physical Exam: The patient is awake, alert and oriented 3, well developed and well nourished, normocephalic and atraumatic, lying in bed and in no acute distress. HEENT--PERRL, EOMI, mucous membranes and oropharynx mildly dry Neck--supple. No JVD. No bruits. Thyroid normal, trachea midline, no adenopathy. Heart--normal S1 and S2. No murmurs, rubs or gallops. Lungs--clear bilaterally, no respiratory distress, no accessory muscle use. Abdomen--normal bowel sounds and soft. Mild epigastric and left sided abdominal pain Extremities--no cyanosis or clubbing. No edema. Dermatologic--normal skin turgor, normal color, no abnormal lymph nodes, no rash. Neurologic--cranial nerves II through XII grossly intact. Rheumatologic--normal range of motion. Psychiatric--normal affect. Results & Data Results & Data ([facility]) Vital Signs (Past 12 Hours) Vital Signs Temp Pulse Pulse Resp BP Pulse Ox O2 Del Method 11/04/21 10:43 97.9 F 80 20 184/80 H 97 Room Air 11/04/21 08:22 98.2 F 68 18 150/69 H 98 Room Air 11/04/21 04:19 97.5 F L 70 16 179/76 H 96 Room Air PG Care Time/CCT Total # of Minutes Spent Total Time Spent with Patient: Total time spent is greater than 50% in coordination of care (as documented) at patient's floor/unit and/or counseling patient: Coding Level of Care Code 39330 Subseq Hosp Care Lvl 2 Diagnoses Hypertensive urgency I16.0 Carotid stenosis I65.29 Syncope R55 Syncope type: unspecified TIA (transient ischemic attack) G45.9 UTI (urinary tract infection) N39.0 Time Spent (min) 35 (1) Syncope Syncope type: unspecified Qualified Code(s): R55 - Syncope and collapse
[2021-11-04] MEDS ORDERED: SUGAMMADEX SODIUM 200 MG/2 ML VIAL IV ONE (13:15)
[2021-11-04] MEDS ORDERED: ESMOLOL HCL INJ 10 MG/ML 10ML VIAL IV ONE (13:59)
[2021-11-04] MEDS ORDERED: PROTAMINE SULFATE 10 MG/ML 5 ML VIAL ONE (13:59)
[2021-11-04] MEDS ORDERED: HEPARIN SOD (PORCINE) 1000 UNIT/ML ONE (13:59)
[2021-11-04] MEDS ORDERED: NITROGLYCERIN/D5W 100 MCG/ML BTL ONE (14:29)
[2021-11-04] MEDS ORDERED: NITROGLYCERIN 5 MG/ML 10 ML VIAL ONE (14:29)
--- NOTE | 2021-11-04 14:33 | Operative Report ---
Post Operative Report Pre & Post Diagnosis Operation Date: 11/04/21 12:45 Pre-Op Diagnosis: Severe stenosis of right internal carotid artery with transient ischemic attack Post-Op Diagnosis: Right Carotid Stenosis with TIA I identified the patient and participated in the time-out.: Yes Procedure Operation Date: 11/04/21 12:45 Actual Procedures p Right Carotid Endarterectomy with bovine patch(Right) - Mack Reyes MD Surgeon Mack Reyes MD Hydrometeorological Technician ManuelitoPAC Estimated Blood Loss 120 Findings Consistent with Post-Op Diagnosis Specimens right internal carotid artery plaque Anesthesia Type General Complications none Disposition Accompanied Patient To Recovery: No Disposition: Recovery Room Indications Is an 85-year-old female who presented with hypertensive crisis. She did have a transient ischemic attack on the side consistent with a significant narrowing of right internal carotid artery. Right carotid endarterectomy was recommended. I have discussed the risks options and benefits of the procedure with the patient. The patient understands the risks options and benefits and agrees to the procedure. Description of Procedure The patient was taken to the operating room and placed in supine position. After general anesthesia was accomplished the right side of the neck was prepped and draped in a sterile manner. The patient was identified and a timeout performed. A longitudinal neck incision was then made coursing along the medial border of the sternocleidomastoid muscle. The incision was taken down through the platysmal layer. The facial vein was identified, ligated, and divided. The common carotid artery was then seen. It was dissected free down to the omohyoid muscle. The dissection was carried upward until the external carotid artery and superior thyroid artery was seen. The superior thyroid artery was slung with a 2-0 silk suture. The external carotid was slung with a red rubber vessel loop. Next the dissection was carried up along the internal carotid artery. This was carried upward to beyond the area of narrowing. The hypoglossal nerve was seen and preserved. The patient was heparinized. After adequate heparinization was accomplished, the internal, external, and common carotid arteries were clamped. A longitudinal arteriotomy was started on the common carotid artery and extended upward along the internal carotid artery to a point beyond the area of narrowing. There was calcified plaque of the internal carotid artery origin causing approximately 90% narrowing. A internal Sundt shunt was then placed in the internal, followed by the common carotid artery and held in place with Srini clamps. There was good back bleeding seen from the internal carotid artery. The endarterectomy was then started in the appropriate plane on the common carotid artery. This was carried upward and the external carotid was everted and endarterectomized. The endarterectomy was then carried up along the internal carotid artery till a nice feathering breakoff point was accomplished beyond the end of the plaque. The endarterectomy was then carried down further on the common carotid artery. At end of the arteriotomy, the plaque was then transected. Under loop magnification, all loose debris and flaps werer removed. There is no distal flap seen at the end of the endarterectomy site. The arteriotomy then closed using a bovine patch and a running 6-0 Prolene suture. This was done in the usual vascular fashion. Prior to completing the closure, the doppler shunt was removed and the internal and common carotid arteries were reclamped. Backbleeding and forward bleeding was allowed to occur. The flow surface was irrigated with heparinized saline. The final few sutures were then placed and securely tied. Clamps were then removed off the external and common carotid arteries. The clamp was then removed the internal carotid artery. Good distal flow was seen. There were several areas of bleeding between the suture bites along the patch. These were controlled with interrupted 607 0 Prolene sutures. Adequate hemostasis was then seen of the patch. The wound was inspec nathaniel and adequate hemostasis was obtained. The wound was irrigated with antibiotic solution. It was then closed with a running 3-0 Vicryl suture for the platysmal layer and a 4-0 subcuticular Vicryl suture for the skin edges. Dermabond was used for dressing. The patient left the operation room in satisfactory condition and tolerated the procedure well. All needle and sponge counts were correct at the end of the procedure. Jacki Hassan Pac assisted due to lack of resident availability and was necessary for prepping, draping, retraction, wound closure defects, subQ and skin closure and was necessary for the case. I attest to the content of the Intraoperative Record and any orders documented therein. Any exceptions are noted below.
[2021-11-04] MEDS ORDERED: LABETALOL HCL IV 5 MG/ML 20ML IV PRN (14:59)
[2021-11-04] MEDS ORDERED: FLUMAZENIL 0.1 MG/1 ML 10 ML VIAL IV PRN (14:59)
[2021-11-04] MEDS ORDERED: ONDANSETRON INJ 2 MG/ML 2 ML VIAL IV PRN (14:59)
[2021-11-04] MEDS ORDERED: ATROPINE SULFATE 0.1 MG/ML 10ML SYR IV PRN (14:59)
[2021-11-04] MEDS ORDERED: ePHEDrine sulfate 50 MG/ML AMP IV PRN (14:59)
[2021-11-04] MEDS ORDERED: PROMETHAZINE HCL 12.5 MG in SODIUM CHLORIDE 0.9% 50 ML IV PRN (14:59)
[2021-11-04] MEDS ORDERED: fentaNYL citrate 100 MCG/2 ML VIAL IV PRN (14:59)
[2021-11-04] MEDS ORDERED: NALOXONE HCL 0.4 MG/1 ML VIAL/CARP IV PRN (14:59)
[2021-11-04] MEDS: cefTRIAXone SODIUM 1,000 MG in DEXTROSE 5% 50 ML IV SCH (16:10)
[2021-11-04] MEDS ORDERED: MoRPHine SULFATE 4 MG/ML 1 ML CARP\\VIAL IV PRN (16:14)
[2021-11-04] MEDS ORDERED: oxyCODONE/ACETAMINOPHEN 5mg/325mg TAB PO PRN (16:14)
--- NOTE | 2021-11-04 16:19 | Anesthesiology Progress Note ---
Date of Service November 04, 2021 Anesthesia Post Procedure Vital Signs Vital Signs: Temp Pulse Pulse Resp BP Pulse Ox O2 Del Method 11/04/21 15:20 75 14 125/52 L 95 Room Air 11/04/21 15:10 721 H 14 103/53 L 96 Oxymask 11/04/21 15:00 80 10 L 118/50 L 97 Oxymask 11/04/21 14:51 36.1 C L 83 14 144/57 H 95 Oxymask 11/04/21 10:43 36.6 C 80 20 184/80 H 97 Room Air 11/04/21 08:22 36.8 C 68 18 150/69 H 98 Room Air 11/04/21 04:19 36.4 C L 70 16 179/76 H 96 Room Air 11/03/21 23:39 36.7 C 76 18 174/68 H 95 Room Air 11/03/21 20:00 36.7 C 74 18 178/69 H 96 Room Air 11/03/21 16:47 36.3 C L 74 18 139/66 99 Room Air O2 Flow Rate 11/04/21 15:20 0 11/04/21 15:10 3 11/04/21 15:00 5 11/04/21 14:51 7 11/04/21 10:43 11/04/21 08:22 11/04/21 04:19 11/03/21 23:39 11/03/21 20:00 11/03/21 16:47 Pain Intensity Right Lower Back: Pain Intensity: 0 Transfer of Care Handoff Completed per policy Notes Mental Status: alert / awake / arousable Patient Amnestic to Procedure: Yes Nausea / Vomiting: adequately controlled Pain: adequately controlled Airway Patency, RR, SpO2: stable & adequate BP & HR: stable & adequate Hydration State: stable & adequate Anesthetic Complications: no major complications apparent
[2021-11-04] MEDS: LACTATED RINGER'S 1,000 ML IV SCH (17:44)
--- NOTE | 2021-11-04 19:04 | Critical Care Consultation ---
Date of Consultation November 04, 2021 Assessment & Plan (1) Postop carotid endarterectomy surveillance, encounter for: Impression: Patient is an 85-year-old female who has been having multiple episodes of syncope likely secondary to right carotid stenosis who is now status post right carotid endarterectomy. Patient is hemodynamically stable and currently being monitored in the ICU. Plan: Neuro: Patient has a history of syncope, recommend patient have close surveillance for getting up and using the bathroom to avoid trauma from fall. Respiratory: No acute respiratory issues, she is a geriatric patient status post surgery requiring general anesthesia, utilize incentive spirometer Cardiovascular: Status post endarterectomy -Monitor in the ICU for the next 24 hours Hypertensive urgency -Continue amlodipine, HCTZ, clonidine. Patient has as needed hydralazine as needed for systolic pressures greater than 180 Renal: Mild hyponatremia last measured on October 31 at 134 -Continue to monitor -ICU electrolyte replacement protocol No other renal complications GI: No current GI issues Endo: No history of diabetes, ICU hyperglycemia protocol Infectious disease: Urinary tract infection -Continue Rocephin every 24 hours Heme-onc: DVT prophylaxis per vascular Diet: Low-sodium Disposition: Monitor in the ICU CODE STATUS: Full code (2) Hypertension: (3) TIA (transient ischemic attack): (4) Hypertensive urgency: (5) Syncope: (6) UTI (urinary tract infection): History of Present Illness Attending Physician: Amarjit Cohen MD History of Present Illness Patient is an 85-year-old female with past medical history of carotid stenosis, mitral regurgitation, hypertension, and previous transient ischemic attack who presented to the hospital for hypertensive urgency. Patient had presented with a blood pressure initially of 220/90 and was treated with IV labetalol. She has a history of syncope likely due to severe carotid stenosis. Patient was originally against having endarterectomy done but was amendable to have it performed today by Dr. Reyes. Patient had procedure performed earlier today and that went without complication. Patient is now status post right carotid endarterectomy. Patient denies feeling any shortness of breath, chest pain, or discomfort. Otherwise at time of interview patient was eating well without any nausea or vomiting. Patient has no other complaints at this time. Allergies Allergy/AdvReac Type Severity Reaction Status Date / Time garlic AdvReac Verified 11/01/21 13:13 onion AdvReac NAUSEA, Verified 11/01/21 13:13 HEADACHE Home Medications Medication Instructions Recorded Confirmed Type Beet Root 1 tab PO DAILY 10/29/21 10/31/21 History acetaminophen 500 mg tablet 1,000 mg PO Q6H PRN Pain 10/29/21 10/31/21 History (Tylenol Extra Strength) cholecalciferol (vitamin D3) 25 0 mcg PO DAILY 10/29/21 10/31/21 History mcg (1,000 unit) tablet (Vitamin D3) cyanocobalamin (vitamin B-12) 100 0 mcg PO DAILY 10/29/21 10/31/21 History mcg tablet (Vitamin B-12) magnesium oxide 0 mg PO DAILY 10/29/21 10/31/21 History multivitamin 1 tab PO DAILY 10/29/21 10/31/21 History vitamin B complex 1 tab PO DAILY 10/29/21 10/31/21 History amlodipine 5 mg tablet (Norvasc) 10 mg PO QAM 90 days #180 tabs 10/31/21 10/31/21 Rx aspirin 81 mg tablet,delayed 81 mg PO QAM 90 days #90 tabs 10/31/21 10/31/21 Rx release atorvastatin 40 mg tablet 40 mg PO QAM 90 days #90 tabs 10/31/21 10/31/21 Rx clopidogrel 75 mg tablet 75 mg PO QAM 21 days #21 tabs 10/31/21 10/31/21 Rx hydrochlorothiazide 25 mg tablet 25 mg PO QAM 90 days #90 tabs 10/31/21 10/31/21 Rx Patient History Medical History CVA (cerebral vascular accident) seen on 10/28/[address] Hypertension Surgical History No significant past surgical history Family History Other Family history non-contributory Social History Smoking Status: Never smoker Hx Alcohol Use: Yes Hx Substance Use: No Preferred Language: [place]ian Communication Ability: Effective Field Project Manager Required: No Beliefs That Will Affect Care: None marital status: / Current Living Situation: Alone Feels Safe at Home: Yes Safety Concerns: Feels Safe At This Time Assistive Devices: Walker Review of Systems Review of Systems: All systems reviewed & are unremarkable except as noted in HPI & below Physical Exam Constitutional: WD/WN, vitals as above Eyes: + anicteric sclerae Neck: trachea midline, no thyromegaly Respiratory: normal respiratory effort; no respiratory distress Auscultation: + crackles Cardiovascular: Rate/Rhythm: regular rate and regular rhythm Palpation: normal PMI Vessels: no JVD Gastrointestinal (Abdomen): normal bowel sounds, soft, nontender, no hepatosplenomegaly Musculoskeletal: Head/Neck/Chest: normocephalic and head atraumatic Skin: no rashes, warm and dry There is a longitudinal, new incision on the right lateral neck without purulence or surrounding erythema Neurologic: moves all extremities Psychiatric: A+Ox3, euthymic affect Lymphatic: no cervical lymphadenopathy Results & Data Results & Data ([facility]) Vital Signs (Past 12 Hours) Vital Signs Temp Pulse Pulse Resp BP BP Pulse Ox 11/04/21 18:00 83 22 145/61 H 97 11/04/21 17:00 85 24 160/66 H 94 11/04/21 16:00 78 14 111/67 93 11/04/21 16:00 36.6 C 11/04/21 15:20 75 14 125/52 L 95 11/04/21 15:10 721 H 14 103/53 L 96 11/04/21 15:00 80 10 L 118/50 L 97 11/04/21 14:51 36.1 C L 83 14 144/57 H 95 11/04/21 10:43 36.6 C 80 20 184/80 H 97 11/04/21 08:22 36.8 C 68 18 150/69 H 98 O2 Del Method O2 Flow Rate 11/04/21 18:00 11/04/21 17:00 11/04/21 16:00 Room Air 11/04/21 16:00 11/04/21 15:20 Room Air 0 11/04/21 15:10 Oxymask 3 11/04/21 15:00 Oxymask 5 11/04/21 14:51 Oxymask 7 11/04/21 10:43 Room Air 11/04/21 08:22 Room Air (1) Hypertension Hypertension type: unspecified Qualified Code(s): I10 - Essential (primary) hypertension (2) Syncope Syncope type: unspecified Qualified Code(s): R55 - Syncope and collapse
[2021-11-04] MEDS ORDERED: CALCIUM CARBONATE 500 MG CHEWABLE TAB PO PRN (22:27)
[2021-11-05 05:35] LABS: Basophils # (auto) 0.02 K/uL (0-0.2); Basophils % (auto) 0.2 %; Hematocrit (blood only) 30.7 % (34.1-44.9); Hemoglobin 10.7 g/dl (12.0-16.0); Immature Granulocytes # (auto) 0.05 K/uL (0.00-0.02); Immature Granulocytes % (auto) 0.5 %; Lymphocytes # (auto) 0.72 K/uL (1.2-3.4); Lymphocytes % (auto) 7.5 %; Mean Corpuscular Hemoglobin 29.8 pg (25.0-34.0); Mean Corpuscular Hgb Conc 34.9 g/dL (32.0-36.0); Mean Corpuscular Volume 85.5 fL (80.0-100.0); Mean Platelet Volume 10.4 fL (9.4-12.3); Monocytes # (auto) 0.74 K/uL (0.24-0.82); Monocytes % (auto) 7.7 %; Neutrophils # (auto) 8.07 K/uL (1.4-6.5); Neutrophils % (auto) 84.1 %; Platelet Count 267 K/uL (130-400); RDW Coefficient of Variation 12.8 % (11.5-14.5); RDW Standard Deviation 40.1 fL (36.4-46.3); Red Blood Count 3.59 M/uL (3.93-5.22)
[2021-11-05] MEDS: LACTATED RINGER'S 1,000 ML IV SCH ×2 (07:11→09:19)
[2021-11-05] MEDS: hydrALAZINE HCL 20 MG/ML VIAL IV PRN (07:56)
[2021-11-05] MEDS: amLODIPine BESYLATE 5 MG TAB PO SCH (09:25)
[2021-11-05] MEDS: ASPIRIN 81 MG ECTAB PO SCH (09:26)
[2021-11-05] MEDS: ATORVASTATIN 40 MG TAB PO SCH (09:26)
--- NOTE | 2021-11-05 09:26 | Surgery Progress Note ---
Date of Service November 05, 2021 Assessment & Plan (1) S/P carotid endarterectomy: Plan: Patient doing extremely well. Will transfer to floor. Can be d/c'd as per primary service. Admission and Anticipated Discharge Date Admission Date: October 31, 2021 Subjective Patient complains of a sore throat. Denies any swallowing difficulties or hoarseness. Denies focal deficits. Physical Exam Constitutional: WD/WN, vitals as above Neck: trachea midline Respiratory: normal respiratory effort; no respiratory distress Cardiovascular: Rate/Rhythm: regular rate and regular rhythm Musculoskeletal: Extremities: strength 5/5 throughout Skin: + incision (dry and clean. no significant swelling) Neurologic: CN's II-XI intact bilaterally and moves all extremities Psychiatric: Orientation: alert and oriented x 3 Results & Data ([facility]) Vital Signs (Past 12 Hours) Vital Signs Temp Pulse Resp BP Pulse Ox O2 Del Method 11/05/21 09:00 68 22 147/47 H 95 Room Air 11/05/21 08:01 75 19 145/90 H 95 Room Air 11/05/21 07:39 73 22 175/59 H 96 Room Air 11/05/21 07:27 74 12 181/67 H 98 Room Air 11/05/21 07:00 68 19 140/57 L 95 Room Air 11/05/21 06:47 36.7 C 11/05/21 06:00 67 17 96 11/05/21 06:00 167/54 H 11/05/21 05:30 69 13 95 11/05/21 05:01 171/63 H 11/05/21 05:01 69 15 95 11/05/21 05:00 69 15 95 11/05/21 04:30 65 16 94 11/05/21 04:00 63 17 94 11/05/21 04:00 133/49 L 11/05/21 03:30 68 17 94 11/05/21 03:00 69 16 95 11/05/21 03:00 158/53 H 11/05/21 02:30 65 16 95 11/05/21 02:00 71 15 95 11/05/21 02:00 146/58 H 11/05/21 01:30 66 15 94 11/05/21 01:00 66 14 94 11/05/21 01:00 137/53 L 11/05/21 00:30 71 16 93 11/05/21 00:00 73 16 92 11/05/21 00:00 129/58 L 11/04/21 23:30 78 18 97 11/04/21 23:14 36.5 C 11/04/21 23:00 76 14 94 11/04/21 23:00 161/57 H 11/04/21 22:30 77 15 96 11/04/21 22:01 76 14 94 11/04/21 22:01 162/70 H 11/04/21 22:00 76 19 92 11/04/21 21:30 76 12 96
[2021-11-05] MEDS: CLOPIDOGREL BISULFATE 75 MG TAB PO SCH (09:27)
[2021-11-05] MEDS: hydroCHLOROthiazide 25 MG TAB PO SCH (09:27)
[2021-11-05] MEDS: VITAMIN B COMPLEX TAB PO SCH (09:28)
[2021-11-05] MEDS: cloNIDine HCL 0.1 MG TAB PO SCH (09:29)
--- NOTE | 2021-11-05 10:36 | Discharge Summary ---
Date of Service November 05, 2021 Admission HPI Per Admitting Provider This is an 85-year-old female with a past medical history significant for hypertension who presents to the ED on account of syncopal episode. Patient was just discharged from this hospital a couple of hours prior to presentation. During her last admission, her BP came under better control with the introduction of Amlodipine and HCTZ, however, patient refused further hospital stay for better optimization of her BP and insisted on being discharged. She was also impressed upon on several occassions to get a vascular surgery consult on account of her right carotid stenosis, however, each time, she refused. She has not seen a doctor for several years. She was on several BP medications for many years, however 2 years ago she stopped them altogether because despite being on them, her pressure was still "very high", reporting they were in the 200s. She felt there was no benefit to taking them. She has not seen a provider since then. 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 Today in the the ED Her BP was once again in the 200's systolic. she will be admitted once again to the hospital for further mgt. During her last admission, a Head CT with evidence of prior lacunar infarcts, no acute process noted. 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 Principal Diagnosis HTN urgency, carotid stenosis Discharge Exam The patient is awake, alert and oriented 3, well developed and well nourished, normocephalic and atraumatic, lying in bed and in no acute distress. HEENT--PERRL, EOMI, mucous membranes and oropharynx mildly dry Neck--supple. No JVD. No bruits. Thyroid normal, trachea midline, no adenopathy. Heart--normal S1 and S2. No murmurs, rubs or gallops. Lungs--clear bilaterally, no respiratory distress, no accessory muscle use. Abdomen--normal bowel sounds and soft. Mild epigastric and left sided abdominal pain Extremities--no cyanosis or clubbing. No edema. Dermatologic--normal skin turgor, normal color, no abnormal lymph nodes, no rash. Neurologic--cranial nerves II through XII grossly intact. Rheumatologic--normal range of motion. Psychiatric--normal affect. Discharge Data Allergies Allergy/AdvReac Type Severity Reaction Status Date / Time garlic AdvReac Verified 11/01/21 13:13 onion AdvReac NAUSEA, Verified 11/01/21 13:13 HEADACHE Consultations 10/31/21 14:47 ED Decision to Admit Stat 10/31/21 15:11 Consult Cardiology Routine 10/31/21 16:48 Consult Vascular Surgery Routine 11/04/21 16:14 Consult Quality Assurance Intern Routine Procedures Performed Operation Date: 11/04/21 12:45 Actual Procedures p Right Carotid Endarterectomy(Right) - Mack Reyes MD Ordered Studies 11/01/21 07:00 duplex renal artery Routine Hospital Course (1) Hypertensive urgency: BP is now under better control Continue HCTZ and Amlodipine and Clonidine (2) Carotid stenosis: Significant right carotid seen on CTA Patient now amenable to carotid endaterectomy after initially refusing to consider it Vascular surgery on consult Continue Plavix and ASA and Atorvastatin Now s/p Right Carotid Endarterectomy Patient is stable post surgery Can be discharged per vascular surgery (3) Syncope: No new syncopal episoded in the hospital 2 D ECHO did not show any structural heart abnormality Has been evaluated by Cardiology, no more work up warranted (4) TIA (transient ischemic attack): Could be due to carotid stenosis - 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 - CT of head, CTA of head and neck findings as above. - Assessed by Neurology, appreciate recs - Telemetry (5) UTI (urinary tract infection): Patient complained of burning urination urinalysis showed evidence of UTI completed a course of IV antibiotics Plan - Admit to PCU. - SCDs Total Time Total Time Spent Total Time Spent (In Minutes): 35 Discharge Plan Discharge Items Patient Disposition: Home - Self-Care Reason For Visit: HTN URGENCY Discharge Diagnosis: HTN urgency, carotid stenosis Activity: Resume your previous activity Non-emergency contact: Primary Care Provider Call non-emergency contact if: you have any medication questions Follow-up/Referrals: PCP,NO [Primary Care Provider] - Diet: Regular Addtl Attending Provider Instructions: please make appointment to follow up with your vascular surgery and also your PCP Pending Studies at Discharge: No Stand-Alone Forms: My [facility], Smoking Cessation Medications and DC Order Prescriptions: New clonidine HCl 0.1 mg Tablet 0.1 mg PO QAM Qty: 30 0RF Continued multivitamin Tablet 1 tab PO DAILY cyanocobalamin (vitamin B-12) [Vitamin B-12] 100 mcg Tablet 0 mcg PO DAILY acetaminophen [Tylenol Extra Strength] 500 mg Tablet 1,000 mg PO Q6H PRN (Reason: Pain) vitamin B complex Tablet 1 tab PO DAILY cholecalciferol (vitamin D3) [Vitamin D3] 25 mcg (1,000 unit) Tablet 0 mcg PO DAILY magnesium oxide 400 mg magnesium Tablet 0 mg PO DAILY Beet Root 1 tab PO DAILY atorvastatin 40 mg Tablet 40 mg PO QAM 90 Days Qty: 90 0RF clopidogrel 75 mg Tablet 75 mg PO QAM 21 Days Qty: 21 0RF amlodipine [Norvasc] 5 mg Tablet 10 mg PO QAM 90 Days Qty: 180 0RF aspirin 81 mg Tablet,Delayed Release (Dr/Ec) 81 mg PO QAM 90 Days Qty: 90 0RF hydrochlorothiazide 25 mg Tablet 25 mg PO QAM 90 Days Qty: 90 0RF Discharge Orders: Discharge Order (Routine); Ordered 11/05/21 Ordered By: Amarjit Cohen Admission Data Admit Date/Time: 10/31/21 14:36 Attending Provider: Amarjit Cohen Admit Provider: Amarjit Cohen Primary Care Provider: PCP,NO Other Providers: Amarjit Cohen ; Eleazar Espinosa ; Mack Reyes ; Faheem Hayes ; Christiano Coon ; Jaime Scott ; Jarod Booth ; Marcus Rodriguez ; Leroy Frost ; Andrew Gonzales ; Solo Guallpa ; Kavitha Meza Coding Level of Care Code D/C DAY MANAGEMENT >30 MINS Diagnoses Hypertensive urgency I16.0 Carotid stenosis I65.29 Syncope R55 Syncope type: unspecified TIA (transient ischemic attack) G45.9 UTI (urinary tract infection) N39.0 Time Spent (min) 35
--- NOTE | 2021-11-05 12:04 | CT Scan Report ---
HEAD CT NONCONTRAST CT DOSE: 729.78 mGycm HISTORY: blurry vision TECHNIQUE: Multiaxial CT images of the head were performed without the use of intravenous contrast. A utomated exposure control was utilized for this study. A dose lowering technique was utilized adheri ng to the principles of ALARA. Comparison: Head CT 10/30/2021. Findings: The paranasal sinuses and mastoid air cells are clear. The calvarium and skull base are int act. There is no mass, hematoma, midline shift, acute infarct. White matter hypodensity is nonspecifi c but suggestive of microvascular ischemic change. The ventricles and sulci demonstrate mild age-rela nathaniel involutional changes. 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 The orbits are unrem arkable. Impression: No significant change compared to the prior study. No acute intracranial abnormality. ACT 112: Negative or not required by law. Electronically signed by: Mike Roman M.D. 11/05/2021 12:03 PM
--- NOTE | 2021-11-05 13:37 | Hospitalist Progress Note ---
Date of Service November 05, 2021 Assessment & Plan (1) Hypertensive urgency: Plan: BP is now under better control Continue HCTZ 25mg, and Amlodipine 10mg and Clonidine 0.1mg (2) Carotid stenosis: Plan: Significant right carotid seen on CTA Patient now amenable to carotid endaterectomy after initially refusing to consider it Vascular surgery on consult Continue Plavix and ASA and Atorvastatin Now s/p Right Carotid Endarterectomy Patient is stable post surgery Can be discharged per vascular surgery (3) Syncope: Plan: No new syncopal episoded in the hospital 2 D ECHO did not show any structural heart abnormality Has been evaluated by Cardiology, no more work up warranted (4) TIA (transient ischemic attack): Plan: Could be due to carotid stenosis - 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 - CT of head, CTA of head and neck findings as above. - Assessed by Neurology, appreciate recs - Telemetry (5) UTI (urinary tract infection): Plan: Patient complained of burning urination urinalysis showed evidence of UTI completed a course of IV antibiotics Plan -Patient will benefit from rehab Admission and Anticipated Discharge Date Admission Date: October 31, 2021 Subjective patient seen and examined, sitting up in the chair Review of Systems Review of Systems: All systems reviewed are negative, apart from the ones contained in the history. Physical Exam Physical Exam: The patient is awake, alert and oriented 3, well developed and well nourished, normocephalic and atraumatic, lying in bed and in no acute distress. HEENT--PERRL, EOMI, mucous membranes and oropharynx mildly dry Neck--supple. No JVD. No bruits. Thyroid normal, trachea midline, no adenopathy. Heart--normal S1 and S2. No murmurs, rubs or gallops. Lungs--clear bilaterally, no respiratory distress, no accessory muscle use. Abdomen--normal bowel sounds and soft. Mild epigastric and left sided abdominal pain Extremities--no cyanosis or clubbing. No edema. Dermatologic--normal skin turgor, normal color, no abnormal lymph nodes, no rash. Neurologic--cranial nerves II through XII grossly intact. Rheumatologic--normal range of motion. Psychiatric--normal affect. Results & Data Results & Data ([facility]) Vital Signs (Past 12 Hours) Vital Signs Temp Pulse Resp BP Pulse Ox O2 Del Method 11/05/21 13:00 69 21 154/53 H 94 Room Air 11/05/21 12:00 73 21 149/47 H 97 Room Air 11/05/21 11:56 76 20 149/52 H 96 Room Air 11/05/21 11:21 72 21 149/57 H 95 Room Air 11/05/21 11:00 69 12 133/46 L 97 Room Air 11/05/21 10:51 69 18 132/53 L 97 Room Air 11/05/21 10:00 72 20 165/49 H 96 Room Air 11/05/21 08:00 97.5 F L 11/05/21 09:00 68 22 147/47 H 95 Room Air 11/05/21 08:01 75 19 145/90 H 95 Room Air 11/05/21 07:39 73 22 175/59 H 96 Room Air 11/05/21 07:27 74 12 181/67 H 98 Room Air 11/05/21 07:00 68 19 140/57 L 95 Room Air 11/05/21 06:47 98.1 F 11/05/21 06:00 67 17 96 11/05/21 06:00 167/54 H 11/05/21 05:30 69 13 95 11/05/21 05:01 171/63 H 11/05/21 05:01 69 15 95 11/05/21 05:00 69 15 95 11/05/21 04:30 65 16 94 11/05/21 04:00 63 17 94 11/05/21 04:00 133/49 L 11/05/21 03:30 68 17 94 11/05/21 03:00 69 16 95 11/05/21 03:00 158/53 H 11/05/21 02:30 65 16 95 11/05/21 02:00 71 15 95 11/05/21 02:00 146/58 H PG Care Time/CCT Total # of Minutes Spent Total Time Spent with Patient: Total time spent is greater than 50% in coordination of care (as documented) at patient's floor/unit and/or counseling patient: Coding Level of Care Code 90200 Subseq Hosp Care Lvl 2 Diagnoses Hypertensive urgency I16.0 Carotid stenosis I65.29 Syncope R55 Syncope type: unspecified TIA (transient ischemic attack) G45.9 UTI (urinary tract infection) N39.0 Time Spent (min) 35 (1) Syncope Syncope type: unspecified Qualified Code(s): R55 - Syncope and collapse
[2021-11-06] MEDS: CLOPIDOGREL BISULFATE 75 MG TAB PO SCH (09:34)
[2021-11-06] MEDS: ASPIRIN 81 MG ECTAB PO SCH (09:34)
[2021-11-06] MEDS: ATORVASTATIN 40 MG TAB PO SCH (09:34)
[2021-11-06] MEDS: hydroCHLOROthiazide 25 MG TAB PO SCH (10:27)
[2021-11-06] MEDS: cloNIDine HCL 0.1 MG TAB PO SCH (10:28)
[2021-11-06] MEDS: VITAMIN B COMPLEX TAB PO SCH (10:32)
--- NOTE | 2021-11-06 12:06 | Hospitalist Progress Note ---
Date of Service November 06, 2021 Assessment & Plan (1) Hypertensive urgency: Plan: BP is now under better control, 146/72 this morning Continue HCTZ 25mg, and Amlodipine 10mg and Clonidine 0.1mg Please avoid giving all the BP meds at the same time to avoid sudden drop in BP. They are currently staggered, AM and PM (2) Carotid stenosis: Plan: Significant right carotid seen on CTA Patient now amenable to carotid endaterectomy after initially refusing to consider it Vascular surgery on consult Continue Plavix and ASA and Atorvastatin Now s/p Right Carotid Endarterectomy Patient is stable post surgery Can be discharged per vascular surgery (3) Syncope: Plan: No new syncopal episoded in the hospital 2 D ECHO did not show any structural heart abnormality Has been evaluated by Cardiology, no more work up warranted (4) TIA (transient ischemic attack): Plan: Could be due to carotid stenosis - 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 - CT of head, CTA of head and neck findings as above. - Assessed by Neurology, appreciate recs - Telemetry (5) UTI (urinary tract infection): Plan: Patient complained of burning urination urinalysis showed evidence of UTI completed a course of IV antibiotics Plan -Patient will benefit from rehab, d/c to rehab when accepted Admission and Anticipated Discharge Date Admission Date: October 31, 2021 Subjective patient seen and examined, sitting up in the chair, denies any symptoms Review of Systems Review of Systems: All systems reviewed are negative, apart from the ones contained in the history. Physical Exam Physical Exam: The patient is awake, alert and oriented 3, well developed and well nourished, normocephalic and atraumatic, lying in bed and in no acute distress. HEENT--PERRL, EOMI, mucous membranes and oropharynx mildly dry Neck--supple. No JVD. No bruits. Thyroid normal, trachea midline, no adenopathy. Heart--normal S1 and S2. No murmurs, rubs or gallops. Lungs--clear bilaterally, no respiratory distress, no accessory muscle use. Abdomen--normal bowel sounds and soft. Mild epigastric and left sided abdominal pain Extremities--no cyanosis or clubbing. No edema. Dermatologic--normal skin turgor, normal color, no abnormal lymph nodes, no rash. Neurologic--cranial nerves II through XII grossly intact. Rheumatologic--normal range of motion. Psychiatric--normal affect. Results & Data Results & Data ([facility]) Vital Signs (Past 12 Hours) Vital Signs Temp Pulse Pulse Resp BP Pulse Ox O2 Del Method 11/06/21 11:28 97.9 F 71 18 146/72 H 95 Room Air 11/06/21 07:50 97.7 F 66 18 150/69 H 98 Room Air 11/06/21 07:16 83 11/06/21 03:23 97.9 F 64 18 127/65 98 Room Air PG Care Time/CCT Total # of Minutes Spent Total Time Spent with Patient: Total time spent is greater than 50% in coordination of care (as documented) at patient's floor/unit and/or counseling patient: Coding Level of Care Code 14306 Subseq Hosp Care Lvl 2 Diagnoses Hypertensive urgency I16.0 Carotid stenosis I65.29 Syncope R55 Syncope type: unspecified TIA (transient ischemic attack) G45.9 UTI (urinary tract infection) N39.0 Time Spent (min) 35 (1) Syncope Syncope type: unspecified Qualified Code(s): R55 - Syncope and collapse
[2021-11-06] MEDS: amLODIPine BESYLATE 5 MG TAB PO SCH (20:46)
[2021-11-07] MEDS: ASPIRIN 81 MG ECTAB PO SCH (09:44)
[2021-11-07] MEDS: cloNIDine HCL 0.1 MG TAB PO SCH (09:44)
[2021-11-07] MEDS: ATORVASTATIN 40 MG TAB PO SCH (09:44)
[2021-11-07] MEDS: CLOPIDOGREL BISULFATE 75 MG TAB PO SCH (09:46)
[2021-11-07] MEDS: hydroCHLOROthiazide 25 MG TAB PO SCH (09:46)
[2021-11-07] MEDS: VITAMIN B COMPLEX TAB PO SCH (09:47)
--- NOTE | 2021-11-07 13:57 | Hospitalist Progress Note ---
Date of Service November 07, 2021 Assessment & Plan (1) Hypertensive urgency: Plan: Acceptable readings, somewhat unusual a.m. 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 - CT of head, CTA of head and neck findings as above. - Assessed by Neurology, appreciate recs " Dual antiplatelet for 3 weeks, continue statin (5) UTI (urinary tract infection): Plan: Patient complained of burning urination urinalysis showed evidence of UTI completed a course of IV antibiotics Plan -Patient will benefit from rehab, d/c to rehab when accepted Admission and Anticipated Discharge Date Admission Date: October 31, 2021 Subjective Follow-up of original presentation with syncopeno new major issues Physical Exam Physical Exam: Constitutional and general: No acute distress, looks biologic age Head and face: No puffiness, atraumatic Eyes: No scleral icterus, extraocular movements normal Neck: Supple, no JVD; postsurgical bruise Musculoskeletal: No acute joint swelling, no bony abnormalities Skin/dermatologic/integument: No rash, no purpura Hematologic and lymphatic: pallor +, no petechia Gastrointestinal/abdomen: Nondistended, soft, nonacute Neurologic: Cranial nerves intact, nonfocal Psychiatry: Awake, alert, pleasant, communicative Cardiovascular: Heart rhythm regular, no rub, no murmur, no gallop Respiratory: Chest movements equal, no use of accessory muscles, no adventitious sounds Extremities: No edema, no cyanosis Results & Data Results & Data ([facility]) Vital Signs (Past 12 Hours) Vital Signs Temp Pulse Pulse Resp BP Pulse Ox O2 Del Method 11/07/21 11:52 36.3 C L 69 18 136/60 96 Room Air 11/07/21 08:30 36.3 C L 78 18 149/72 H 98 Room Air 11/07/21 08:06 74 11/07/21 03:35 36.7 C 70 20 131/58 L 95 Room Air PG Care Time/CCT Total # of Minutes Spent Total Time Spent with Patient: Total time spent is greater than 50% in coordination of care (as documented) at patient's floor/unit and/or counseling patient: Coding Level of Care Code 72288 Subseq Hosp Care Lvl 2 Diagnoses Hypertensive urgency I16.0 Carotid stenosis I65.29 Syncope R55 Syncope type: unspecified TIA (transient ischemic attack) G45.9 UTI (urinary tract infection) N39.0 (1) Syncope Syncope type: unspecified Qualified Code(s): R55 - Syncope and collapse
[2021-11-07] MEDS: amLODIPine BESYLATE 5 MG TAB PO SCH (20:26)
[2021-11-08 07:04] LABS: Basophils # (auto) 0.07 K/uL (0-0.2); Basophils % (auto) 0.9 %; Eosinophils # (auto) 0.22 K/uL (0-0.50); Eosinophils % (auto) 2.9 %; Hematocrit (blood only) 32.3 % (34.1-44.9); Hemoglobin 11.1 g/dl (12.0-16.0); Immature Granulocytes # (auto) 0.03 K/uL (0.00-0.02); Immature Granulocytes % (auto) 0.4 %; Lymphocytes # (auto) 2.65 K/uL (1.2-3.4); Lymphocytes % (auto) 35.1 %; Mean Corpuscular Hemoglobin 29.8 pg (25.0-34.0); Mean Corpuscular Hgb Conc 34.4 g/dL (32.0-36.0); Mean Corpuscular Volume 86.6 fL (80.0-100.0); Mean Platelet Volume 10.7 fL (9.4-12.3); Monocytes # (auto) 0.88 K/uL (0.24-0.82); Monocytes % (auto) 11.7 %; Neutrophils # (auto) 3.69 K/uL (1.4-6.5); Platelet Count 293 K/uL (130-400); RDW Coefficient of Variation 12.5 % (11.5-14.5); RDW Standard Deviation 39.7 fL (36.4-46.3); Red Blood Count 3.73 M/uL (3.93-5.22); White Blood Count 7.54 K/ul (4.8-10.8)
[2021-11-08 07:34] LABS: BUN Creatinine Ratio 28.2 (10-20); Calcium 8.6 mg/dl (8.5-10.1); Creatinine Clr Calc Pharmacy 34.6 ml/min; Est GFR (African American) 56.6 ml/min; Est GFR (Non-African American) 48.8 ml/min; Potassium 3.6 mmol/L (3.5-5.1)
[2021-11-08] MEDS: cloNIDine HCL 0.1 MG TAB PO SCH (08:38)
[2021-11-08] MEDS: ASPIRIN 81 MG ECTAB PO SCH (08:38)
[2021-11-08] MEDS: ATORVASTATIN 40 MG TAB PO SCH (08:38)
[2021-11-08] MEDS: hydroCHLOROthiazide 25 MG TAB PO SCH (08:39)
[2021-11-08] MEDS: VITAMIN B COMPLEX TAB PO SCH (08:39)
[2021-11-08] MEDS: CLOPIDOGREL BISULFATE 75 MG TAB PO SCH (08:39)
--- NOTE | 2021-11-08 16:30 | Hospitalist Progress Note ---
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 - CT of head, CTA of head and neck findings as above. - Assessed by Neurology, appreciate recs Dual antiplatelet for 3 weeks, continue statin (5) UTI (urinary tract infection): Plan: Finished treatment (6) Anemia: Plan: Hemoglobin stable to betterfollow Admission and Anticipated Discharge Date Admission Date: October 31, 2021 Disposition pendingno bed at facility per case management Subjective Follow-up of original presentation with syncopeno complaints other than she states she is bored! Physical Exam Physical Exam: Constitutional and general: No acute distress, looks biologic age Head and face: No puffiness, atraumatic Eyes: No scleral icterus, extraocular movements normal Neck: Supple, no JVD; bruise at site of CEA better Musculoskeletal: No acute joint swelling, no bony abnormalities Skin/dermatologic/integument: No rash, no purpura Hematologic and lymphatic: pallor +, no petechia Gastrointestinal/abdomen: Nondistended, soft, nonacute Neurologic: Cranial nerves intact, nonfocal Psychiatry: Awake, alert, pleasant, communicative Cardiovascular: Heart rhythm regular, no rub, systolic murmur about 3 x 6 right base, no gallop Respiratory: Chest movements equal, no use of accessory muscles, no adventitious sounds Extremities: No edema, no cyanosis Results & Data Results & Data ([facility]) Vital Signs (Past 12 Hours) Vital Signs Temp Pulse Pulse Resp BP Pulse Ox O2 Del Method 11/08/21 14:18 69 11/08/21 06:02 72 11/08/21 11:35 36.6 C 66 18 120/65 98 Room Air 11/08/21 08:31 36.8 C 70 20 143/67 H 96 Room Air Laboratory Results Laboratory Results - last 24 hr 11/08/21 11/08/21 06:08 06:08 WBC 7.54 RBC 3.73 L Hgb 11.1 L Hct 32.3 L MCV 86.6 MCH 29.8 MCHC 34.4 RDW Std Deviation 39.7 RDW Coeff of Kaila 12.5 Plt Count 293 MPV 10.7 Immature Gran % (Auto) 0.4 Neut % (Auto) 49.0 Lymph % (Auto) 35.1 Pi[place] % (Auto) 11.7 Eos % (Auto) 2.9 Baso % (Auto) 0.9 Neut # (Auto) 3.69 Lymph # (Auto) 2.65 [place] # (Auto) 0.88 H Eos # (Auto) 0.22 Baso # (Auto) 0.07 Immature Gran # (Auto) 0.03 H Sodium 134 L Potassium 3.6 Chloride 100 Carbon Dioxide 27 Anion Gap 7 BUN 29 H Creatinine 1.03 Est Cr Clr Drug Dosing 34.6 Est GFR ( Amer) 56.6 Est GFR (Non-Af Amer) 48.8 BUN/Creatinine Ratio 28.2 H Glucose 99 Calcium 8.6 PG Care Time/CCT Total # of Minutes Spent Total Time Spent with Patient: Total time spent is greater than 50% in coordination of care (as documented) at patient's floor/unit and/or counseling patient: Coding Level of Care Code 25927 Subseq Hosp Care Lvl 2 Diagnoses Hypertensive urgency I16.0 Carotid stenosis I65.29 Syncope R55 Syncope type: unspecified TIA (transient ischemic attack) G45.9 UTI (urinary tract infection) N39.0 Anemia D64.9 (1) Syncope Syncope type: unspecified Qualified Code(s): R55 - Syncope and collapse
[2021-11-08] MEDS: amLODIPine BESYLATE 5 MG TAB PO SCH (20:10)
[2021-11-09] MEDS: CLOPIDOGREL BISULFATE 75 MG TAB PO SCH (09:33)
[2021-11-09] MEDS: hydroCHLOROthiazide 25 MG TAB PO SCH (09:33)
[2021-11-09] MEDS: ASPIRIN 81 MG ECTAB PO SCH (09:33)
[2021-11-09] MEDS: ATORVASTATIN 40 MG TAB PO SCH (09:33)
[2021-11-09] MEDS: cloNIDine HCL 0.1 MG TAB PO SCH (09:33)
[2021-11-09] MEDS: VITAMIN B COMPLEX TAB PO SCH (09:34)
--- NOTE | 2021-11-09 16:03 | Hospitalist Progress Note ---
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 - CT of head, CTA of head and neck findings as above. - Assessed by Neurology, appreciate recs Dual antiplatelet for 3 weeks, continue statin (5) UTI (urinary tract infection): Plan: Finished treatment (6) Anemia: Plan: Hemoglobin stable to better as of last checkfollow Admission and Anticipated Discharge Date Admission Date: October 31, 2021 Subjective Follow-up of original presentation with syncopeno complaints today too other than she states she is bored! Physical Exam Physical Exam: Constitutional and general: No acute distress, looks biologic age Head and face: No puffiness, atraumatic Eyes: No scleral icterus, extraocular movements normal Neck: Supple, no JVD; bruise at site of CEA better Musculoskeletal: No acute joint swelling, no bony abnormalities Skin/dermatologic/integument: No rash, no purpura Hematologic and lymphatic: pallor +, no petechia Gastrointestinal/abdomen: Nondistended, soft, nonacute Neurologic: Cranial nerves intact, nonfocal Psychiatry: Awake, alert, pleasant, communicative Cardiovascular: Heart rhythm regular, no rub, systolic murmur about 3 x 6 right base, no gallop Respiratory: Chest movements equal, no use of accessory muscles, no adventitious sounds Extremities: No edema, no cyanosis Results & Data Results & Data ([facility]) Vital Signs (Past 12 Hours) Vital Signs Temp Pulse Pulse Resp BP Pulse Ox O2 Del Method 11/09/21 15:44 36.9 C 67 16 145/70 H 95 Room Air 11/09/21 08:00 71 11/09/21 07:35 36.7 C 82 16 147/68 H 93 Room Air PG Care Time/CCT Total # of Minutes Spent Total Time Spent with Patient: Total time spent is greater than 50% in coordination of care (as documented) at patient's floor/unit and/or counseling patient: Coding Level of Care Code 89550 Subseq Hosp Care Lvl 2 Diagnoses Hypertensive urgency I16.0 Carotid stenosis I65.29 Syncope R55 Syncope type: unspecified TIA (transient ischemic attack) G45.9 UTI (urinary tract infection) N39.0 Anemia D64.9 (1) Syncope Syncope type: unspecified Qualified Code(s): R55 - Syncope and collapse
[2021-11-09] MEDS: amLODIPine BESYLATE 5 MG TAB PO SCH (20:26)
[2021-11-10] MEDS: CLOPIDOGREL BISULFATE 75 MG TAB PO SCH (07:50)
[2021-11-10] MEDS: cloNIDine HCL 0.1 MG TAB PO SCH (07:50)
[2021-11-10] MEDS: ASPIRIN 81 MG ECTAB PO SCH (07:50)
[2021-11-10] MEDS: ATORVASTATIN 40 MG TAB PO SCH (07:50)
[2021-11-10] MEDS: hydroCHLOROthiazide 25 MG TAB PO SCH (07:51)
[2021-11-10] MEDS: VITAMIN B COMPLEX TAB PO SCH (07:51)
--- NOTE | 2021-11-10 12:02 | Discharge Summary ---
Date of Service November 10, 2021 Admission HPI Per Admitting Provider This is an 85-year-old female with a past medical history significant for hypertension who presents to the ED on account of syncopal episode. Patient was just discharged from this hospital a couple of hours prior to presentation. During her last admission, her BP came under better control with the introduction of Amlodipine and HCTZ, however, patient refused further hospital stay for better optimization of her BP and insisted on being discharged. She was also impressed upon on several occassions to get a vascular surgery consult on account of her right carotid stenosis, however, each time, she refused. She has not seen a doctor for several years. She was on several BP medications for many years, however 2 years ago she stopped them altogether because despite being on them, her pressure was still "very high", reporting they were in the 200s. She felt there was no benefit to taking them. She has not seen a provider since then. 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 Today in the the ED Her BP was once again in the 200's systolic. she will be admitted once again to the hospital for further mgt. During her last admission, a Head CT with evidence of prior lacunar infarcts, no acute process noted. 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 Principal Diagnosis Hypertensive urgency Discharge Exam No acute distress Heart rate2 to 3 x 6 systolic murmur right base Chest clear Good volume status Vital Signs Temp Pulse Pulse Resp BP BP Pulse Ox 11/10/21 11:19 36.2 C L 67 16 168/73 H 97 11/10/21 07:54 36.8 C 80 16 165/72 H 96 11/10/21 07:16 62 11/10/21 02:35 36.8 C 82 18 138/64 93 11/10/21 00:07 36.9 C 63 18 133/69 96 11/09/21 22:17 64 11/09/21 19:00 36.7 C 64 20 151/73 H 98 11/09/21 16:12 62 11/09/21 15:44 36.9 C 67 16 145/70 H 95 O2 Del Method 11/10/21 11:19 Room Air 11/10/21 07:54 Room Air 11/10/21 07:16 11/10/21 02:35 Room Air 11/10/21 00:07 Room Air 11/09/21 22:17 11/09/21 19:00 Room Air 11/09/21 16:12 11/09/21 15:44 Room Air Intake and Output 11/09/21 11/10/21 11/10/21 22:59 06:59 14:59 Intake Total 225 / 375 150 / 375 Balance 225 / 375 150 / 375 Intake: Oral 225 / 375 150 / 375 Other: # Unmeasured Voids 1 Weight 62.5 kg Discharge Data Allergies Allergy/AdvReac Type Severity Reaction Status Date / Time garlic AdvReac Verified 11/01/21 13:13 onion AdvReac NAUSEA, Verified 11/01/21 13:13 HEADACHE Consultations 10/31/21 14:47 ED Decision to Admit Stat 10/31/21 15:11 Consult Cardiology Routine 10/31/21 16:48 Consult Vascular Surgery Routine 11/04/21 16:14 Consult Site Supervising Technical Operator Routine Procedures Performed Operation Date: 11/04/21 12:45 Actual Procedures p Right Carotid Endarterectomy(Right) - Makc Reyes MD Ordered Studies 11/01/21 07:00 duplex renal artery Routine 11/05/21 11:20 CT head/brain wo con Urgent Hospital Course (1) Hypertensive urgency: Resolved; doing well on current meds's continue same (2) Carotid stenosis: Status post endarterectomy, vascular surgery follow-up (3) Syncope: No more episodes, seen by cardiology and no more work-up recommended (4) TIA (transient ischemic attack): Already underwent carotid endarterectomy that may be the culprit (right carotid stenosis); continue dual antiplatelet for 3 weeks, then aspirin, continue statin (5) UTI (urinary tract infection): Treated (6) Anemia: Follow as outpatient Plan Referral was made for inpatient rehab, denied by insurance; SNF recommended but patient declined and wanted to go home with home healtharranged by case management Total Time Total Time Spent Total Time Spent (In Minutes): 35 Discharge Plan Discharge Items Patient Disposition: Home - Home Health Services Reason For Visit: HTN URGENCY Discharge Diagnosis: HTN urgency, carotid stenosis Activity: As commented below Activity Comment: As tolerated Non-emergency contact: Primary Care Provider Call non-emergency contact if: you have any medication questions Follow-up/Referrals: Christiano Arias MD [Physician] - (Stroke follow-upin about 1 month) Mack Reyes MD [Physician] - 11/17/21 1:30 pm () PCP,NO [Primary Care Provider] - Diet: Regular, Heart Healthy and Low Sodium (2gm) Addtl Attending Provider Instructions: please make appointment to follow up with your vascular surgery; See your primary care doctor in about 1 week Addtl Hog Counter Provider Instructions: SPECIAL CARE INSTRUCTIONS: Medications: * Continue to take Aspirin as directed. Incision Care: * You may shower, but do not rub incision. You may let the warm soapy water run over it. Be sure to dry the incision well after bathing. * Do not shave directly over the incision until it is healed. * DO NOT IMMERSE THE INCISION IN A TUB/POOL/etc. UNTIL HEALED. Restrictions: * Do not drive for at least one week or if you are still taking any narcotic pain medication. * Do not lift anything heavier than a gallon of milk for one week after going home. Possible Complications: * Numbness - It is normal to have some numbness around the incision. Numbness can extend beyond the incision to areas of the neck, ear and face. The numbness is due to bruising of nerves during the surgery and will gradually improve over a period of months. * Hoarseness/Difficulty Speaking and Swallowing - The bruising of nerves in the neck can also cause a hoarse voice, difficulty speaking or swallowing. This may improve over time, HOWEVER, if it continues for more than a few days please contact our office ([phone]). * Excessive Swelling - There will be some swelling immediately after surgery which usually resolves within one week. If you notice that the swelling is getting worse, notify your surgeon ([phone]). * Drainage/Bleeding - If there is any drainage or bleeding, it should be a very small amount (less than a teaspoon per day). If you have excessive bleeding or drainage from the incision, call your surgeon ([phone]) right away. ACTIVATION OF EMERGENCY MEDICAL SYSTEM: Call 911, immediately, if you experience any of the following: Warning Signs and Symptoms of Stroke: * Sudden numbness or weakness of the face, arm or leg, especially on one side of the body * Sudden confusion, trouble speaking or understanding * Sudden trouble seeing in one or both eyes * Sudden trouble walking, dizziness, loss of balance or coordination * Sudden severe headache with no cause Do not delay calling 911 if you experience any warning signs or symptoms of a stroke. Delay in seeking medical attention may affect what treatments can be given to you. Risk Factors for Stroke: You can reduce your chances of stroke by working with your medical provider to adopt a healthy lifestyle. Some specific ways to lower your chance of stroke are: * If you are a smoker, now is the time to stop smoking cigarettes * If you are diabetic, improve the control of your blood sugars * Avoid excessive amounts of alcohol * Control high blood pressure * Lose weight if you are overweight * Be sure to lead an active lifestyle * Eat a healthy diet low in salt, cholesterol and fat You should know about other risk factors for stroke that you are unable to control. These include: * Age 55 years or older * Male gender * Certain racial groups: , or / * Family History of Stroke, Mini stroke or Heart Attack * Sickle Cell Disease You will be receiving a call from the Vascular Surgery Nurse after you are discharged. FOLLOW UP VISIT: It is important for you to keep your follow up appointments with your medical provider. Keep any scheduled doctor appointments. Call [phone] to schedule a follow up appointment if one not already scheduled. Pending Studies at Discharge: No Stand-Alone Forms: My [facility], Smoking Cessation Medications and DC Order Prescriptions: New clonidine HCl 0.1 mg Tablet 0.1 mg PO QAM Qty: 30 0RF Continued multivitamin Tablet 1 tab PO DAILY cyanocobalamin (vitamin B-12) [Vitamin B-12] 100 mcg Tablet 0 mcg PO DAILY acetaminophen [Tylenol Extra Strength] 500 mg Tablet 1,000 mg PO Q6H PRN (Reason: Pain) vitamin B complex Tablet 1 tab PO DAILY cholecalciferol (vitamin D3) [Vitamin D3] 25 mcg (1,000 unit) Tablet 0 mcg PO DAILY magnesium oxide 400 mg magnesium Tablet 0 mg PO DAILY Beet Root 1 tab PO DAILY atorvastatin 40 mg Tablet 40 mg PO QAM 90 Days Qty: 90 0RF clopidogrel 75 mg Tablet 75 mg PO QAM 21 Days Qty: 21 0RF aspirin 81 mg Tablet,Delayed Release (Dr/Ec) 81 mg PO QAM 90 Days Qty: 90 0RF hydrochlorothiazide 25 mg Tablet 25 mg PO QAM 90 Days Qty: 90 0RF Changed amlodipine [Norvasc] 5 mg Tablet 10 mg PO QPM 90 Days Qty: 180 0RF Discharge Orders: Discharge Order (Routine); Ordered 11/10/21 Ordered By: Mallorie Graf Admission Data Admit Date/Time: 10/31/21 14:36 Attending Provider: Mallorie Graf Admit Provider: Amarjit Cohen Primary Care Provider: PCP,NO Other Providers: Amarjit Cohen ; Eleazar Espinosa ; Mack Reyes ; Faheem Hayes ; Christiano Coon ; Jaime Scott ; Jarod Booth ; Marcus Rodriguez ; Leroy Frost ; Andrew Gonzales ; Solo Guallpa ; Kavitha Meza ; Jyoti Hannon [facility] ; [facility] Coding Level of Care Code D/C DAY MANAGEMENT >30 MINS Diagnoses Hypertensive urgency I16.0 Carotid stenosis I65.29 Syncope R55 Syncope type: unspecified TIA (transient ischemic attack) G45.9 UTI (urinary tract infection) N39.0 Anemia D64.9
== END 2021-11-10 13:47 | disposition home health service (06) | DRG 38 ==
LOC: ED 13:26 → SUATTDRO 14:36 → 2S 14:36 → 1E 11-04 15:49 → 2N 11-05 13:37
DX: I10 Essential (primary) hypertension; Z79.82 Long term (current) use of aspirin; I65.23 Occlusion and stenosis of bilateral carotid arteries; I16.0 Hypertensive urgency; I65.02 Occlusion and stenosis of left vertebral artery; R26.2 Difficulty in walking, not elsewhere classified; I34.0 Nonrheumatic mitral (valve) insufficiency; Z79.02 Long term (current) use of antithrombotics/antiplatelets; Z86.73 Personal history of transient ischemic attack (TIA), and cerebral infarction without residual deficits; Z91.14 Patient's other noncompliance with medication regimen; R55 Syncope and collapse; E87.1 Hypo-osmolality and hyponatremia; W19.XXXA Unspecified fall, initial encounter; Z91.018 Allergy to other foods; Y92.231 Patient bathroom in hospital as the place of occurrence of the external cause; D64.9 Anemia, unspecified; N39.0 Urinary tract infection, site not specified